=== PATIENT | male | born 1965 | race Caucasian/White ===

== ENCOUNTER 2019-08-24 09:06 | Emergency (ER) | payer BC ==
[2019-08-24 09:49] LABS: Absolute Lymphocytes (CBC) 1.3 K/uL (0.7-4.9); Basophils % 0.9 % (0-1.3); Hematocrit 42.2 % (39.6-49.0); Lymphocytes % 14.9 % (15.3-44.8); MPV 9.1 fL (7.6-11.3); RBC Red Blood Cell Count 4.46 M/uL (4.33-5.43)
[2019-08-24 10:16] LABS: ALT/SGPT 43 U/L (12-78); AST/SGOT 25 U/L (15-37); Alkaline Phosphatase 65 U/L (45-117); BUN Blood Urea Nitrogen 14 mg/dL (7-18); Bicarbonate 30 mmol/L (21-32); Bilirubin Total 0.9 mg/dL (0.2-1.0); Glucose Level 129 mg/dL (74-106); HDL Cholesterol 55 mg/dL (40-60); LDL Cholesterol, Calculated 84 (<130); Potassium 4.1 mmol/L (3.5-5.1); Protein, Total 7.2 g/dL (6.4-8.2); Sodium Level 137 mmol/L (136-145)
--- NOTE | 2019-08-24 10:54 | RAD REPORT ---
EXAM DESCRIPTION: US - Extremity Venous Uni Ltd - 08/24/2019 10:19 am CLINICAL HISTORY: Right leg pain and swelling COMPARISON: None. TECHNIQUE: Real-time sonographic evaluation of the right lower extremity deep venous systems was per formed. FINDINGS: Normal compressibility, flow augmentation, phasic flow and spontaneous flow are identified in the right lower extremity common femoral, superficial femoral, popliteal and posterior tibial vei ns. No intraluminal filling defects seen. Exam was limited due to large body habitus. IMPRESSION: No DVT in the right lower extremity.
[2019-08-24 11:19] LABS: Urine Blood TRACE (NEG); Urine Glucose NEGATIVE (NEG); Urine Protein 1+ (NEG); Urine Specific Gravity 1.025 (1.005-1.030)
--- NOTE | 2019-08-24 11:33 | RAD REPORT ---
EXAM DESCRIPTION: RAD - Foot Right 3 View - 08/24/2019 10:28 am CLINICAL HISTORY: Osteoarthritis, he will wound COMPARISON: None. FINDINGS: No fracture, dislocation or periosteal reaction. No acute or destructive bone process seen . Small plantar spur is present. Minimal spurring seen at the Achilles attachment to the calcaneus. P atient has degenerative change at the tarsal - metatarsal articulations. This is relatively prominent for age. Soft tissue wound seen in the plantar soft tissues. Adjacent calcaneus shows no suspicious finding. No foreign body. IMPRESSION: Soft tissue wound near the calcaneus plantar surface of the foot. No bone destructive process seen. Osteomyelitis can exist prior to radiographic bone destruction.
--- NOTE | 2019-08-24 11:46 | RAD REPORT ---
EXAM DESCRIPTION: US - Lower Extremity Arterial Bilat - 08/24/2019 10:53 am CLINICAL HISTORY: Leg pain, peripheral vascular disease COMPARISON: None. TECHNIQUE: Left brachial artery pressure measurement was obtained. No right extremity arterial press ure obtained due to IV in place. Exam was requested as a limited ADRIANA only examination. FINDINGS: Left brachial artery pressure measurement is in the normal range. ADRIANA values are normal me asuring 1.08 on the right and 1.12 on the left. IMPRESSION: Limited extremity examination showing normal bilateral lower extremity ADRIANA values.
--- NOTE | 2019-08-24 13:07 | ER ---
Nurse's Notes [facility] Name: Chip Segundo III Age: 53 yrs Sex: Male : 1965 Arrival Date: 08/24/2019 Time: 09:10 Bed 8 Private MD: Diagnosis: Venous Stasis;Heel ulcer Presentation: 08/24 09:27 Presenting complaint: Patient states: Right foot sore x 2 weeks and right lower leg jl7 redness and swelling x 3 days. Transition of care: patient was not received from another setting of care. Onset of symptoms was August 21, 2019. Risk Assessment: Do you want to hurt yourself or someone else? Patient reports no desire to harm self or others. Initial Sepsis Screen: Does the patient meet any 2 criteria? No. Patient's initial sepsis screen is negative. Does the patient have a suspected source of infection? Yes: Skin breakdown/wound. Care prior to arrival: None. 09:27 Method Of Arrival: Ambulatory jl7 09:27 Acuity: CLINT 3 jl7 Triage Assessment: 09:29 General: Appears in no apparent distress. uncomfortable, Behavior is calm, cooperative, jl7 appropriate for age. Pain: Denies pain. Neuro: Level of Consciousness is awake, alert, obeys commands, Oriented to person, place, time, situation. Cardiovascular: Patient's skin is warm and dry. Respiratory: Airway is patent Respiratory effort is even, unlabored, Respiratory pattern is regular, symmetrical. Derm: Skin is pink, warm \T\ dry. Wound noted heel of right foot Wound is open, no bleeding. Historical: - Allergies: 09:29 No Known Allergies; jl7 - Home Meds: 09:29 carvedilol 12.5 mg Oral tab [Active]; olmesartan-hydrochlorothiazide 40-25 Oral 1 tab jl7 once daily [Active]; - PMHx: 09:29 Hypertension; jl7 - PSHx: 09:29 Knee surgery; jl7 - Immunization history:: Adult Immunizations not up to date, Last tetanus immunization: < 5 years ago. - Social history:: Smoking status: Patient/guardian denies using tobacco. - Ebola Screening: : No symptoms or risks identified at this time. Screenin:30 Abuse screen: Denies threats or abuse. Denies injuries from another. Nutritional jl7 screening: No deficits noted. Tuberculosis screening: No symptoms or risk factors identified. Fall Risk IV access (20 points). Total Jiang Fall Scale indicates No Risk (0-24 pts). Assessment: 09:30 General: See triage assessment. jl7 10:30 Reassessment: Patient appears in no apparent distress at this time. No changes from 7 previously documented assessment. Patient and/or family updated on plan of care and expected duration. Pain level reassessed. Patient is alert, oriented x 3, equal unlabored respirations, skin warm/dry/pink. 11:30 Reassessment: Patient appears in no apparent distress at this time. No changes from jl7 previously documented assessment. Patient and/or family updated on plan of care and expected duration. Pain level reassessed. Patient is alert, oriented x 3, equal unlabored respirations, skin warm/dry/pink. 12:30 Reassessment: Patient appears in no apparent distress at this time. No changes from jl7 previously documented assessment. Patient and/or family updated on plan of care and expected duration. Pain level reassessed. Patient is alert, oriented x 3, equal unlabored respirations, skin warm/dry/pink. Vital Signs: 09:29 BP 164 / 109; Pulse 95; Resp 19 S; Temp 97.9(O); Pulse Ox 98% on R/A; Weight 158.76 kg jl7 (R); Height 6 ft. 5 in. (195.58 cm) (R); Pain 0/10; 11:08 BP 128 / 83; Pulse 66; Resp 19 S; Pulse Ox 98% on R/A; Pain 0/10; jl7 12:30 BP 132 / 85; Pulse 89; Resp 16 S; Pulse Ox 98% on R/A; jl7 09:29 Body Mass Index 41.50 (158.76 kg, 195.58 cm) jl7 ED Course: 09:10 Patient arrived in ED. rg4 09:12 Jez Douglass MD is Attending Physician. ps1 09:27 Valery Grier RN is Primary Nurse. jl7 09:28 Triage completed. jl7 09:29 Arm band placed on right wrist. jl7 09:30 Patient has correct armband on for positive identification. Bed in low position. Call [facility] light in reach. Side rails up X 1. Pulse ox on. NIBP on. 09:39 Initial lab(s) drawn, by me, sent to lab. Inserted saline lock: 22 gauge in right jb1 antecubital area, using aseptic technique. Blood collected. 10:22 Extremity Venous Uni Ltd In Process Unspecified. EDMS 10:26 Foot Right 3 View XRAY In Process Unspecified. EDMS 10:47 Hemoglobin A1c Sent. jl7 11:08 Hemoglobin A1c Sent. jl7 12:40 ED physician to see patient. jl7 13:16 No provider procedures requiring assistance completed. IV discontinued, intact, jl7 bleeding controlled, No redness/swelling at site. Pressure dressing applied. Administered Medications: No medications were administered Outcome: 13:06 Discharge ordered by MD. ps1 13:16 Discharged to home ambulatory. jl7 13:16 Condition: stable 13:16 Discharge instructions given to patient, Instructed on discharge instructions, follow up and referral plans. medication usage, Demonstrated understanding of instructions, follow-up care, medications, Prescriptions given X 3. 13:17 Patient left the ED. jl7 Signatures: Dispatcher [employer] EDMS Gilmar Day jb1 Analisa Benz rg4 Valery Grier, RN RN jl7 Jez Douglass MD MD ps1 Corrections: (The following items were deleted from the chart) 10:58 10:23 In radiology for Upper Lower Extrem Art Multi. EDMS EDMS
--- NOTE | 2019-08-24 13:07 | EDPHYS ---
Physician Documentation [facility] Name: Chip Segundo III Age: 53 yrs Sex: Male : 1965 Arrival Date: 08/24/2019 Time: 09:10 Bed 8 Private MD: ED Physician Jez Douglass HPI: 08/24 09:31 This 53 yrs old Male presents to ER via Ambulatory with complaints of Leg ps1 Pain. 09:31 Patient has an otherwise unknown medical history other than hypertension. 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 He is presenting with right leg pain and new redness and swelling of the right leg. He additionally has a non-healing wound on the right heel. No known history of DM. Reportedly had a history of cellulitis in the same leg a year ago requiring admission. . Historical: - Allergies: 09:29 No Known Allergies; jl7 - Home Meds: 09:29 carvedilol 12.5 mg Oral tab [Active]; olmesartan-hydrochlorothiazide 40-25 Oral 1 tab jl7 once daily [Active]; - PMHx: 09:29 Hypertension; jl7 - PSHx: 09:29 Knee surgery; jl7 - Immunization history:: Adult Immunizations not up to date, Last tetanus immunization: < 5 years ago. - Social history:: Smoking status: Patient/guardian denies using tobacco. - Ebola Screening: : No symptoms or risks identified at this time. ROS: 09:31 Constitutional: Negative for fever, chills, and weight loss, Eyes: Negative for injury, ps1 pain, redness, and discharge, Cardiovascular: Negative for chest pain, palpitations, and edema, Respiratory: Negative for shortness of breath, cough, wheezing, and pleuritic chest pain, Abdomen/GI: Negative for abdominal pain, nausea, vomiting, diarrhea, and constipation, MS/Extremity: Negative for injury and deformity, Psych: Negative for depression, anxiety, suicide ideation, homicidal ideation, and hallucinations. 09:31 Skin: Positive for discoloration, of the right leg and left leg and right foot. Exam: 09:39 Constitutional: This is a well developed, well nourished patient who is awake, alert, ps1 and in no acute distress. Head/Face: Normocephalic, atraumatic. Eyes: Pupils equal round and reactive to light, extra-ocular motions intact. Lids and lashes normal. Conjunctiva and sclera are non-icteric and not injected. Chest/axilla: Normal chest wall appearance and motion. Nontender with no deformity. No lesions are appreciated. Cardiovascular: Regular rate and rhythm. No gallops, murmurs, or rubs. Normal PMI, no JVD. No pulse deficits. Respiratory: Lungs have equal breath sounds bilaterally, clear to auscultation and percussion. No rales, rhonchi or wheezes noted. No increased work of breathing, no retractions or nasal flaring. Abdomen/GI: Soft, non-tender, with normal bowel sounds. No distension or tympany. No guarding or rebound. No evidence of tenderness throughout. MS/ Extremity: Pulses equal, no cyanosis. Neurovascular intact. Full, normal range of motion. 09:39 Skin: has chronic discoloration and hair loss of both lower extremities consistent with vasculopathy. Has erythematous changes which are new in the right leg with asymmetrical swelling of the right as compared to left. There is a decubitus ulcer 4cm in diameter of the right heel. Odorous. No purulent drainage. . Vital Signs: 09:29 BP 164 / 109; Pulse 95; Resp 19 S; Temp 97.9(O); Pulse Ox 98% on R/A; Weight 158.76 kg jl7 (R); Height 6 ft. 5 in. (195.58 cm) (R); Pain 0/10; 11:08 BP 128 / 83; Pulse 66; Resp 19 S; Pulse Ox 98% on R/A; Pain 0/10; jl7 12:30 BP 132 / 85; Pulse 89; Resp 16 S; Pulse Ox 98% on R/A; jl7 09:29 Body Mass Index 41.50 (158.76 kg, 195.58 cm) jl7 MDM: 09:30 Patient medically screened. ps1 08/24 09:25 Order name: CBC with Diff; Complete Time: 10: ps1 08/24 09:25 Order name: CMP; Complete Time: 10: ps1 08/24 09:25 Order name: Lipid Profile; Complete Time: 10: ps1 08/24 09:25 Order name: ESR; Complete Time: : ps1 08/24 09:25 Order name: Hemoglobin A1c ps1 08/24 10:59 Order name: Hemoglobin A1c; Complete Time: 11:23 EDTN 08/24 09:25 Order name: Foot Right 3 View XRAY; Complete Time: 11:43 ps1 08/24 09:25 Order name: Urine Dipstick-Ancillary (obtain specimen); Complete Time: 11:08 ps1 08/24 09:36 Order name: Extremity Venous Uni Ltd; Complete Time: 10:58 EDTN 08/24 10:59 Order name: Lower Extremity Arterial Bilat; Complete Time: 12:32 EDTN 08/24 11:04 Order name: Urine Dipstick--Ancillary (enter results); Complete Time: 11:23 bd Administered Medications: No medications were administered Disposition: 08/24/19 13:06 Discharged to Home. Impression: Venous Stasis, Heel ulcer. - Condition is Stable. - Discharge Instructions: Venous Ulcer, Venous Stasis or Chronic Venous Insufficiency. - Prescriptions for compression stocking - apply 1 Each by over lower extremities route 1-2 times daily for 12 hours; 2 Each. Keflex 500 mg Oral Capsule - take 1 capsule by ORAL route every 8 hours for 10 days; 30 capsule. Bactrim DS 800- 160 mg Oral Tablet - take 1 tablet by ORAL route every 12 hours for 10 days; 20 tablet. - Medication Reconciliation Form, Thank You Letter, Antibiotic Education, Prescription Opioid Use form. - Follow up: Emergency Department; When: As needed; Reason: Fever > 102 F, Worsening of condition. Follow up: Private Physician; When: Dr. Juárez, Vascular Surgery. ; Reason: Further diagnostic work-up, Recheck today's complaints, Re-evaluation by your physician. - Problem is new. - Symptoms are unchanged. Signatures: Dispatcher [employer] EDTN Valery Grier RN RN jl7 Jez Douglass MD MD ps1 Corrections: (The following items were deleted from the chart) 09:38 09:31 Skin: Positive for chronic hyperpigmentation and changes of vasculopathy in lower ps1 extremities bilaterally. He has hair loss in tibial area. Right leg is asymmetrically enlarged as compared to left. There are erythematous changes that are apparent per patient however states that he has redness of the extremity since last cellulitic episode. 3 cm decubitus ulcer of the right heel with muscle tissue exposed. Has unpleasant smell. No purulent drainage. , ps1 09:39 09:31 Skin: Positive for ps1 ps1 10:22 09:31 Lower Extremity Arterial Bilat ordered. EDMS EDMS 10:58 10:23 Upper Lower Extrem Art Multi ordered. EDMS EDMS 13:17 13:06 08/24/2019 13:06 Discharged to Home. Impression: Venous Stasis; Heel ulcer. jl7 Condition is Stable. Forms are Medication Reconciliation Form, Thank You Letter, Antibiotic Education, Prescription Opioid Use. Follow up: Emergency Department; When: As needed; Reason: Fever > 102 F, Worsening of condition. Follow up: Private Physician; When: Dr. Juárez, Vascular Surgery. ; Reason: Further diagnostic work-up, Recheck today's complaints, Re-evaluation by your physician. Problem is new. Symptoms are unchanged. ps1
[2019-08-24 13:24] VITALS: TEMP 97.9; O2SAT 98
[2019-08-24 13:27] VITALS: BP 132/85
== END 2019-08-24 13:17 | disposition home or self-care (01) ==
LOC: ER 09:06
DX: I87.2 Venous insufficiency (chronic) (peripheral) (principal); I10 Essential (primary) hypertension
CPT/HCPCS: 36415; 80053; 80061; 81003; 83036; 85025; 85652; 93925; 93971; 99284

== ENCOUNTER 2021-11-23 12:10 | Inpatient (IN) | payer BC ==
--- OUTSIDE RECORDS SUMMARY | 2021-11-23 12:22 | XMS REPORT | Continuity of Care Document ---
:1965 Author Organization [facility] t Address [address] [place] [address] Care Team Providers Name Role Phone Mayelin Chen Attending Clinician Unavailable IGNACIA Attending Clinician Unavailable Payers Payer Name Policy Type Policy Number Effective Date Expiration Date S [facility] - [id number] 2004 00:00:00 OUT OF STATE Problems This patient has no known problems. Allergies, Adverse Reactions, Alerts Allergy Allergy Status Severity Reaction(s) Onset Inactive Treating Comm ents Source Name Type Date Date Clinician NO KNOWN Drug Active [facility] Medications This patient has no known medications. Procedures This patient has no known procedures. Encounters Start End Encounter Admission Attending Care Care Encounter Source Date/Time Date/Time Type Type Clinicians Facility Department ID 2021-09-20 Outpatient Sarahi Chen [facility] [id number] 13:50:35 [id number] [facility] 2021-09-20 Outpatient Sarahi Chen [facility] [id number] 13:46:08 [id number] [facility] 2020-03-25 2020-03-25 Outpatient Dorothea [facility] [id number] [id number] [facility] 08:00:00 08:00:00 MACRINA [id number] latha low [facility] 2020-03-25 2020-03-25 Outpatient Dorothea [facility] [id number] [facility] 08:00:00 08:00:00 MACRINA low [facility] 2020-03-11 2020-03-11 [facility] [id number] Univers 08:00:00 08:00:00 MACRINA [id number] low [facility] 2020-03-11 2020-03-11 Outpatient R IGNACIA [facility] [id number] Univers 08:00:00 08:00:00 MACRINA latha cole [facility] 2020-02-26 2020-02-26 Outpatient R IGNACIA [facility] [id number] [id number] Univers 08:00:00 08:00:00 MACRINA [id number] xenalino cole [facility] 2020-02-26 2020-02-26 Outpatient R IGNACIA [facility] [id number] Univers 08:00:00 08:00:00 MACRINA latha cole [facility] 2020-02-05 2020-02-05 Outpatient R IGNACIA [facility] [id number] Univers 09:45:00 09:45:00 MACRINA latha low douglas [facility] 2020-02-05 2020-02-05 Outpatient R IGNACIA [facility] [id number] Univers 09:45:00 09:45:00 MACRINA [id number] xenalino cole [facility] 2019-12-11 2019-12-11 Outpatient R IGNACIA [facility] [id number] [id number] Univers 08:00:00 08:00:00 MACRINA [id number] xenalino cole [facility] 2019-12-11 2019-12-11 Outpatient R IGNACIA [facility] [id number] Univers 08:00:00 08:00:00 MACRINA mccallumlino low douglas [facility] 2019-10-22 2019-10-22 Outpatient R IGNACIA [facility] [id number] Univers 09:00:00 09:00:00 MACRINA mccallumlino low [facility] Results This patient has no known results.
[2021-11-23 13:53] LABS: Absolute Lymphocytes (CBC) 1.2 K/uL (0.7-4.9); Hematocrit 44.6 % (39.6-49.0); Lymphocytes % 12.4 % (15.3-44.8); MPV 7.8 fL (7.6-11.3); RBC Red Blood Cell Count 4.86 M/uL (4.33-5.43)
[2021-11-23 13:55] LABS: Protime INR 1.17
[2021-11-23 14:10] LABS: Albumin 2.7 g/dL (3.4-5.0); Bilirubin Direct 0.2 mg/dL (0-0.2); Bilirubin Total 0.7 mg/dL (0.2-1.0); Magnesium 1.8 mg/dL (1.8-2.4); Potassium 4.1 mmol/L (3.5-5.1); Troponin High Sensitivity 3.3 pg/mL (<58.9)
--- NOTE | 2021-11-23 14:32 | RAD REPORT ---
EXAM DESCRIPTION: US - Extremity Venous Uni Ltd - 11/23/2021 2:27 pm CLINICAL HISTORY: SWELLING COMPARISON: None. TECHNIQUE: Real-time sonographic evaluation of the right lower extremity deep venous systems was per formed. FINDINGS: Normal compressibility, flow augmentation, phasic flow and spontaneous flow are identified in the right lower extremity common femoral, superficial femoral, popliteal and posterior tibial vei ns. No intraluminal filling defects seen. IMPRESSION: No DVT in the right lower extremity.
--- NOTE | 2021-11-23 14:48 | RAD REPORT ---
EXAM DESCRIPTION: RAD - Chest Single View - 11/23/2021 2:37 pm CLINICAL HISTORY: right lower leg swelling COMPARISON: Single-view chest 11/23/2016 TECHNIQUE: AP portable chest image was obtained 11/23/2021 2:37 pm . FINDINGS: Lungs are clear. Interstitial pattern matches comparison. Heart and vasculature are normal . No measurable pleural effusion and no pneumothorax. No acute bony abnormality seen. No acute aortic findings suspected. IMPRESSION: No acute cardiopulmonary process. No significant change from comparison study.
--- NOTE | 2021-11-23 15:12 | ER ---
Nurse's Notes [facility] Name: Chip Segundo III Age: 56 yrs Sex: Male : 1965 Arrival Date: 11/23/2021 Time: 12:18 Bed 15 Private MD: Diagnosis: Cellulitis of right lower limb;Unspecified atrial fibrillation Presentation: 11/23 12:44 Chief complaint: Patient states: he has right lower leg cellulits of which he received ap3 antibiotics for from his PCP last Friday 11/17. However patient states that it has not improved, but has gotten worse. Patients right leg is reddened, warm to the touch, and there is swelling present. Coronavirus screen: At this time, the client does not indicate any symptoms associated with coronavirus-19. Ebola Screen: No symptoms or risks identified at this time. Initial Sepsis Screen: Does the patient meet any 2 criteria? HR > 90 bpm. No. Patient's initial sepsis screen is negative. Does the patient have a suspected source of infection? Yes: Skin breakdown/wound. Risk Assessment: Do you want to hurt yourself or someone else? Patient reports no desire to harm self or others. Onset of symptoms was November 17, 2021. 12:44 Method Of Arrival: Ambulatory ap3 12:44 Acuity: CLINT 3 ap3 Triage Assessment: 12:50 General: Appears in no apparent distress. Behavior is calm, cooperative, appropriate ap3 for age. Pain: Complains of pain in right leg Quality of pain is described as tightness. Neuro: Level of Consciousness is awake, alert, obeys commands, Oriented to person, place, time, situation. Respiratory: Airway is patent Respiratory effort is even, unlabored, Respiratory pattern is regular, symmetrical. Derm: Skin has skin tears on right lower leg Wound noted lateral aspect of right calf, right ankle, right calf, right Achilles, medial aspect of right calf, right amado and anterior aspect of right ankle. Historical: - Home Meds: 12:48 carvedilol 12.5 mg Oral tab [Active]; olmesartan-hydrochlorothiazide 40-25 Oral 1 tab ap3 once daily for Hypertension [Active]; cephalexin 500 mg Oral cap 1 cap twice a day [Active]; sulfamethoxazole-trimethoprim 800-160 mg Oral tab 1 tab twice a day [Active]; 15:28 aspirin 81 mg Oral chew 1 tab once daily [Active]; ab2 - PMHx: 12:48 Hypertension; Cellulitis; ap3 - Immunization history:: Client reports having NOT received the Covid vaccine. Flu vaccine is not up to date. - Social history:: Smoking status: Patient reports use of chewing tobacco. Patient uses alcohol, on a daily basis. Screenin:52 Abuse screen: Denies threats or abuse. Nutritional screening: No deficits noted. ap3 Tuberculosis screening: No symptoms or risk factors identified. 14:19 Fall Risk None identified. ab2 Assessment: 14:13 General: Appears in no apparent distress. comfortable, Behavior is calm, cooperative, ab2 appropriate for age. Pain: Complains of pain in right amado Pain does not radiate. Neuro: Level of Consciousness is awake, alert, obeys commands, Oriented to person, place, time, situation, Appropriate for age Microbiology Laboratory Manager are equal bilaterally Moves all extremities. Cardiovascular: No deficits noted. Denies chest pain, shortness of breath, Heart tones S1 S2 present. Respiratory: No deficits noted. Airway is patent Respiratory effort is even, unlabored, Respiratory pattern is regular, symmetrical, Breath sounds are clear bilaterally. GI: No deficits noted. No signs and/or symptoms were reported involving the gastrointestinal system. Abdomen is round non-distended, Bowel sounds present X 4 quads. : No deficits noted. No signs and/or symptoms were reported regarding the genitourinary system. EENT: No deficits noted. No signs and/or symptoms were reported regarding the EENT system. Derm: Wound noted right amado. 14:53 Reassessment: Patient appears in no apparent distress at this time. Awaiting results of ab2 imaging for disposition. Patient given ice water and pillow for comfort. Denies any further needs at this time, remains at bedside. 17:00 Reassessment: Patient appears in no apparent distress at this time. Pt resting in bed, ab2 denies any needs. Pt given water and pillow for comfort. 18:23 Reassessment: Patient appears in no apparent distress at this time. Pt sitting in ab2 recliner placed at bedside, water given, dinner tray given and urinal placed at bedside. 19:30 General: Appears in no apparent distress. comfortable, Behavior is calm, cooperative, al4 appropriate for age. Pain: Denies pain. Neuro: Level of Consciousness is awake, alert, obeys commands, Oriented to person, place, time, situation. Cardiovascular: Capillary refill < 3 seconds Patient's skin is warm and dry. Edema is 2+ to right midcalf, right ankle, right foot and right toes. Respiratory: Airway is patent Respiratory effort is unlabored, Respiratory pattern is symmetrical. Derm: Wound noted lateral aspect of right calf, right ankle, lateral aspect of right foot, right calf, right Achilles, right heel, medial aspect of right calf and medial aspect of right foot. Musculoskeletal: Circulation, motion, and sensation intact. 20:30 Reassessment: Patient and/or family updated on plan of care and expected duration. Pain al4 level reassessed. Patient is alert, oriented x 3, equal unlabored respirations, skin warm/dry/pink. 21:30 Reassessment: Patient and/or family updated on plan of care and expected duration. Pain al4 level reassessed. Patient is alert, oriented x 3, equal unlabored respirations, skin warm/dry/pink. Vital Signs: 12:44 BP 138 / 95; Pulse 99; Resp 16; Temp 97.5; Pulse Ox 98% ; Weight 167.83 kg; Height 6 ap3 ft. 5 in. (195.58 cm); 14:19 BP 129 / 90; Pulse 99; Resp 18; Pulse Ox 98% on R/A; ab2 14:54 BP 123 / 75; Pulse 86; Resp 17; Pulse Ox 98% on R/A; ab2 15:27 BP 120 / 86; Pulse 94; Resp 16; Pulse Ox 99% on R/A; ab2 16:35 BP 123 / 73; Pulse 103; Resp 17; Pulse Ox 97% on R/A; ab2 17:53 BP 120 / 82; Pulse 112; Resp 17; Pulse Ox 98% on R/A; ab2 18:26 BP 123 / 76; Pulse 102; Resp 17; Temp 98.2(O); Pulse Ox 99% on R/A; Pain 0/10; ab2 19:30 BP 109 / 75; Pulse 91; Resp 18 S; Pulse Ox 98% on R/A; al4 20:30 BP 114 / 67; Pulse 101; Resp 18 S; Pulse Ox 98% on R/A; al4 21:30 BP 130 / 84; Pulse 105; Resp 17 S; Pulse Ox 97% on R/A; al4 12:44 Body Mass Index 43.88 (167.83 kg, 195.58 cm) ap3 ED Course: 12:18 Patient arrived in ED. ds1 12:48 Triage completed. ap3 12:52 Arm band placed on left wrist. ap3 12:56 Naga Morales PA is PHCP. cp 12:56 Roland Mishra MD is Attending Physician. cp 13:15 Robert Calhoun is Primary Nurse. ab2 14:18 Patient has correct armband on for positive identification. Bed in low position. Call ab2 light in reach. Side rails up X2. 14:18 No provider procedures requiring assistance completed. ab2 14:19 Inserted saline lock: 20 gauge in right antecubital area, using aseptic technique. ab2 Blood collected. 14:20 Procalcitonin Sent. ab2 14:20 Blood Culture Adult (2) Sent. ab2 14:20 Lactate Sent. ab2 14:21 US Extremity Venous Unilateral Ltd In Process Unspecified. EDMS 14:21 US LE Artery Uni Ltd In Process Unspecified. EDMS 14:38 XRAY Chest (1 view) In Process Unspecified. EDMS 15:12 Guille Mishra MD is Hospitalizing Provider. cp 15:27 COVID-19/FLU A+B (Document "Date of Onset" if Symptomatic) Sent. ab2 22:44 Patient admitted, IV remains in place. al4 Administered Medications: 15:17 Drug: Cefepime 2 grams Route: IVPB; Rate: 200 ml/hr; Infused Over: 30 mins; Site: right ab2 forearm; 18:27 Follow up: Response: No adverse reaction; IV Status: Completed infusion ab2 16:33 Drug: vancoMYCIN 1.5 grams Route: IVPB; Rate: calculated rate; Site: right antecubital; ab2 18:28 Follow up: Response: No adverse reaction; IV Status: Completed infusion ab2 16:33 Drug: Lovenox (enoxaparin) 1 mg/kg Route: Sub-Q; Site: left upper arm; ab2 18:28 Follow up: Response: No adverse reaction ab2 Outcome: 15:12 Decision to Hospitalize by Provider. cp 22:21 Admitted to Med/surg room 209, Report called to PRAVEENA Holman al4 22:21 Condition: stable 22:21 Instructed on the need for admit, Demonstrated understanding of instructions. 22:40 Patient left the ED. al4 Signatures: Dispatcher [employer] SANIANE Garcia, Florence ds1 Naga Morales PA PA cp Prokisch, Amanda, RN RN ap3 Robert Escalera al4 Robert Calhoun
--- NOTE | 2021-11-23 15:12 | EDPHYS ---
Physician Documentation [facility] Name: Chip Segundo III Age: 56 yrs Sex: Male : 1965 Arrival Date: 11/23/2021 Time: 12:18 Bed 15 Private MD: ED Physician Roland iMshra HPI: 11/23 13:20 This 56 yrs old Male presents to ER via Ambulatory with complaints of Leg Cellulitis. cp 13:20 The patient presents with swelling, tenderness. The complaints affect the right lower cp leg and right foot. 13:20 Context: resulted from an unknown cause, the patient can fully bear weight, the patient cp is able to ambulate, with mild difficulty, Problem is a result from a previous injury: No. 13:20 Onset: The symptoms/episode began/occurred last week. Associated signs and symptoms: cp Pertinent positives: calf tenderness, warmth, Pertinent negatives fever, numbness. 13:20 Treatment prior to arrival includes: currently taking prescribed Bactrim and Cephalexin cp since last Saturday. Historical: - Home Meds: 12:48 carvedilol 12.5 mg Oral tab [Active]; olmesartan-hydrochlorothiazide 40-25 Oral 1 tab ap3 once daily for Hypertension [Active]; cephalexin 500 mg Oral cap 1 cap twice a day [Active]; sulfamethoxazole-trimethoprim 800-160 mg Oral tab 1 tab twice a day [Active]; 15:28 aspirin 81 mg Oral chew 1 tab once daily [Active]; ab2 - PMHx: 12:48 Hypertension; Cellulitis; ap3 - Immunization history:: Client reports having NOT received the Covid vaccine. Flu vaccine is not up to date. - Social history:: Smoking status: Patient reports use of chewing tobacco. Patient uses alcohol, on a daily basis. ROS: 13:25 Constitutional: Negative for body aches, chills, fever, poor PO intake. cp 13:25 Eyes: Negative for injury, pain, redness, and discharge. cp 13:25 Cardiovascular: Negative for chest pain, palpitations. 13:25 Respiratory: Negative for cough, shortness of breath, wheezing. 13:25 Abdomen/GI: Negative for abdominal pain, nausea, vomiting, and diarrhea. 13:25 MS/extremity: Positive for erythema, swelling, tenderness, of the right lower leg and right foot, Negative for injury or acute deformity, decreased range of motion. 13:25 Neuro: Negative for altered mental status, dizziness, weakness. 13:25 All other systems are negative. Exam: 13:30 Constitutional: The patient appears in no acute distress, alert, awake, cp non-diaphoretic, non-toxic, well developed, well nourished, obese. 13:30 Head/Face: Normocephalic, atraumatic. cp 13:30 Eyes: Periorbital structures: appear normal, Conjunctiva: normal, no exudate, no injection, Sclera: no appreciated abnormality, Lids and lashes: appear normal, bilaterally. 13:30 ENT: External ear(s): are unremarkable, Nose: is normal, Mouth: Lips: moist, Oral mucosa: moist, Posterior pharynx: Airway: no evidence of obstruction, patent. 13:30 Neck: ROM/movement: is normal, is supple, without pain, no range of motions limitations. 13:30 Chest/axilla: Inspection: normal. 13:30 Cardiovascular: Rate: normal, Rhythm: regular. 13:30 Respiratory: the patient does not display signs of respiratory distress, Respirations: normal, no use of accessory muscles, no retractions, labored breathing, is not present, Breath sounds: are clear throughout, no decreased breath sounds, no stridor, no wheezing. 13:30 Abdomen/GI: Exam negative for discomfort, distension, guarding, Inspection: abdomen appears normal. 13:30 Skin: abscess, not appreciated, cellulitis, that is moderate, well demarcated, on the right lower leg and right foot. 13:30 Neuro: Orientation: to person, place \\T\\ time. Mentation: is normal. 13:50 ECG was reviewed by the Attending Physician. cp Vital Signs: 12:44 BP 138 / 95; Pulse 99; Resp 16; Temp 97.5; Pulse Ox 98% ; Weight 167.83 kg; Height 6 ap3 ft. 5 in. (195.58 cm); 14:19 BP 129 / 90; Pulse 99; Resp 18; Pulse Ox 98% on R/A; ab2 14:54 BP 123 / 75; Pulse 86; Resp 17; Pulse Ox 98% on R/A; ab2 15:27 BP 120 / 86; Pulse 94; Resp 16; Pulse Ox 99% on R/A; ab2 16:35 BP 123 / 73; Pulse 103; Resp 17; Pulse Ox 97% on R/A; ab2 17:53 BP 120 / 82; Pulse 112; Resp 17; Pulse Ox 98% on R/A; ab2 18:26 BP 123 / 76; Pulse 102; Resp 17; Temp 98.2(O); Pulse Ox 99% on R/A; Pain 0/10; ab2 19:30 BP 109 / 75; Pulse 91; Resp 18 S; Pulse Ox 98% on R/A; al4 20:30 BP 114 / 67; Pulse 101; Resp 18 S; Pulse Ox 98% on R/A; al4 21:30 BP 130 / 84; Pulse 105; Resp 17 S; Pulse Ox 97% on R/A; al4 12:44 Body Mass Index 43.88 (167.83 kg, 195.58 cm) ap3 MDM: 12:57 Patient medically screened. cp 13:30 Differential diagnosis: cellulitis, abscess, sepsis, DVT. cp 15:15 Data reviewed: vital signs, nurses notes, lab test result(s), EKG, radiologic studies, cp ultrasound. 15:15 Test interpretation: by ED physician or midlevel provider: ECG, plain radiologic cp studies. Counseling: I had a detailed discussion with the patient and/or guardian regarding: the historical points, exam findings, and any diagnostic results supporting the discharge/admit diagnosis, lab results, radiology results, the need for further work-up and treatment in the hospital. Response to treatment: the patient's symptoms have mildly improved after treatment. Physician consultation: Guille Mishra MD was called at 15:10, was contacted at 15:10, regarding admission, to the telemetry unit. patient's condition. 11/23 13:10 Order name: Basic Metabolic Panel; Complete Time: 14:34 cp 11/23 14:34 Interpretation: Normal except: NA 133; GFR 89. cp 11/23 13:10 Order name: CBC with Diff; Complete Time: 14:34 cp 11/23 14:34 Interpretation: Normal except: IESHA% 77.7; LYM% 12.4. cp 11/23 13:10 Order name: LFT's; Complete Time: 14:34 cp 11/23 14:35 Interpretation: Normal except: ALB 2.7; GLOB 5.3; A/G 0.5. cp 11/23 13:10 Order name: Magnesium; Complete Time: 14:34 cp 11/23 13:10 Order name: NT PRO-BNP; Complete Time: 14:34 cp 11/23 14:45 Interpretation: NT PRO-BNP 323; Reviewed. cp 11/23 13:10 Order name: PT-INR; Complete Time: 14:34 cp 11/23 13:10 Order name: Troponin HS; Complete Time: 14:34 cp 11/23 14:45 Interpretation: Reviewed. cp 11/23 13:10 Order name: Lactate; Complete Time: 14:34 cp 11/23 13:10 Order name: Blood Culture Adult (2) cp 11/23 13:10 Order name: Procalcitonin; Complete Time: 14:46 cp 11/23 14:46 Interpretation: Procalcitonin 0.08; Reviewed. 11/23 15:08 Order name: COVID-19/FLU A+B (Document "Date of Onset" if Symptomatic) 11/23 16:26 Order name: CBC with Automated Diff [facility] 11/23 16:26 Order name: CBC with Automated Diff [facility] 11/23 16:26 Order name: Comprehensive Metabolic Panel [facility] 11/23 13:10 Order name: XRAY Chest (1 view); Complete Time: 14:58 11/23 13:10 Order name: EKG; Complete Time: 13:10 11/23 13:10 Order name: Cardiac monitoring; Complete Time: 14:20 11/23 13:10 Order name: EKG - Nurse/Tech; Complete Time: 14:20 11/23 13:10 Order name: IV Saline Lock; Complete Time: 14:20 cp 11/23 13:10 Order name: US Extremity Venous Unilateral Ltd; Complete Time: 14:34 cp 11/23 13:10 Order name: US LE Artery Uni Ltd; Complete Time: 15:31 cp 11/23 15:15 Order name: Diet Regular; Complete Time: 15:15 cp 11/23 16:20 Order name: CONS Physician Consult [facility] 11/23 16:26 Order name: Comprehensive Metabolic Panel [facility] 11/23 16:26 Order name: Magnesium EDMS 11/23 16:26 Order name: Magnesium [facility] 11/23 16:37 Order name: Echo with Doppler [facility] 11/23 13:10 Order name: Labs collected and sent; Complete Time: 14:20 cp 11/23 13:10 Order name: O2 Per Protocol; Complete Time: 14:20 cp 11/23 13:10 Order name: O2 Sat Monitoring; Complete Time: 14:20 cp EC:50 Rate is 101 beats/min. Rhythm is irregular. QRS interval is normal. QT interval is cp normal. T waves are Inverted in lead aVR. Interpreted by me. Reviewed by me. Administered Medications: 15:17 Drug: Cefepime 2 grams Route: IVPB; Rate: 200 ml/hr; Infused Over: 30 mins; Site: right ab2 forearm; 18:27 Follow up: Response: No adverse reaction; IV Status: Completed infusion ab2 16:33 Drug: vancoMYCIN 1.5 grams Route: IVPB; Rate: calculated rate; Site: right antecubital; ab2 18:28 Follow up: Response: No adverse reaction; IV Status: Completed infusion ab2 16:33 Drug: Lovenox (enoxaparin) 1 mg/kg Route: Sub-Q; Site: left upper arm; ab2 18:28 Follow up: Response: No adverse reaction ab2 Disposition: 11/24 18:22 Co-signature as Attending Physician, Roland Mishra MD. rn Disposition Summary: 11/23/21 15:12 Hospitalization Ordered Hospitalization Status: Inpatient Admission cp Provider: Guille Mishra cp Location: Telemetry/MedSurg (Inpatient) cp Condition: Stable cp Problem: an ongoing problem cp Symptoms: are unchanged cp Bed/Room Type: Standard Room Assignment: 209(11/23/21 21:50) tw5 Diagnosis - Cellulitis of right lower limb cp - Unspecified atrial fibrillation cp Forms: - Medication Reconciliation Form cp - SBAR form cp Signatures: Dispatcher [employer] EDRoland Banerjee MD MD rn Page, Corey, PA PA cp Raiza Cohen RN RN [email or web address] Padmini Narayan tw5 Robert Calhoun ab2 Corrections: (The following items were deleted from the chart) 11/23 21:50 15:12 cp tw5
[2021-11-23] MEDS ORDERED: CEFEPIME 2 GM VIAL ONE ×2 (15:16→20:54)
[2021-11-23] MEDS ORDERED: NA CHLORIDE 0.9% 100 ML IV ONE ×2 (15:17→20:54)
--- NOTE | 2021-11-23 15:28 | RAD REPORT ---
EXAM DESCRIPTION: US - Lower Extremity Artery Uni Ltd - 11/23/2021 2:27 pm CLINICAL HISTORY: SWELLING COMPARISON: Lower Extremity Arterial Bilat dated 08/24/2019No comparisons TECHNIQUE: Doppler evaluation of the right leg arterial tree performed. Waveforms and velocity value s were obtained along with visual inspection. FINDINGS: Triphasic waveform pattern is identifiable in the common femoral, superficial and poplitea l arteries.Mid thigh to knee vasculature shows a transition towards biphasic waveform pattern. Biphas ic to monophasic waveforms are seen in the dorsalis pedis and posterior tibial arteries. Common femor al artery velocity was 123 cm/second without the usual tapering at the ankle. No occlusion or focal f low restricting lesion identifiable. Atherosclerotic changes are identifiable in the ross of vascula ture. Soft tissues are edematous. No abscess or drainable fluid collection was seen in the soft tissues. IMPRESSION: No occlusion or focal flow restricting lesion was identifiable in the right lower extrem ity. Velocity values are elevated over what is typically seen which is nonspecific. There is progressive t ransformation from triphasic to monophasic waveforms between the groin and ankle.
[2021-11-23] MEDS ORDERED: ENOXAPARIN 80 MG/0.8 ML SQ ONE (15:58)
[2021-11-23] MEDS ORDERED: VANCOMYCIN 1.5 GM in NA CHLORIDE 0.9% 500 ML IVPB ONE (16:00)
[2021-11-23] MEDS ORDERED: ONDANSETRON 4 MG/2 ML VIAL IV PRN (16:20)
[2021-11-23] MEDS ORDERED: ACETAMINOPHEN 500 MG TAB PO PRN (16:20)
--- NOTE | 2021-11-23 16:26 | P.HP ---
Certification for Inpatient Patient admitted to: Inpatient With expected LOS: >2 Midnights Practitioner: I am a practitioner with admitting privileges, knowledge of patient current condition, hospital course, and medical plan of care. Services: Services provided to patient in accordance with Admission requirements found in Title 42 Section 412.3 of the Code of Federal Regulations Patient History Date of Service: 11/23/21 Reason for admission: RLE cellulitis, failed outpatient therapy History of Present Illness: 56 yo M, PMH: Hypertension, prior leg cellulitis x3. Presents to ED due to significant erythema and swelling of his right lower extremity. First noticed swelling and redness 1 week ago. Treated with Keflex and Bactrim over the last 5 days. Patient states swelling and pain slightly improved, but continued to be very red, blistered up and was draining some yellowish fluid. He reports subjective fevers at home, general feelings of malaise and not well. In the ED, he was noted be afebrile, with no leukocytosis. Venous and arterial ultrasounds were negative for DVT or flow restriction. Patient received IV cefepime and vancomycin. He was noted to be in new onset atrial fibrillation, mostly rate controlled [id number]. Patient takes Coreg at home for his blood pressure. He was given Lovenox 1 mg/kg in the ED. Allergies No Known Allergies Allergy (Verified 11/23/16 16:17) Home Medications: Aspirin [Adult Low Dose Aspirin EC] 81 mg PO DAILY 11/23/16 Olmesartan/Hydrochlorothiazide [Benicar Hct 20-12.5 mg Tablet] 1 each PO DAILY 11/23/16 carvediloL [Carvedilol] 12.5 mg PO BID 11/23/16 Doxycycline Monohydrate 100 mg PO BID #28 capsule 11/26/16 Furosemide [Lasix] 20 mg PO DAILY #10 tablet 11/26/16 Smz./Tmp. [Bactrim Ds 800 MG/160 MG*] 1 tab PO BID #28 tab 11/26/16 - Past Medical/Surgical History Diabetic: No -: HTN -: Knee surgery - Family History Mother -: Heart disease, Hypertension Father -: Hypertension, Lung disease - Social History Smoking Status: Former smoker Alcohol use: Yes CD- Drugs: No Caffeine use: Yes Place of Residence: Home Review of Systems 10-point ROS is otherwise unremarkable Physical Examination - Physical Exam General: Alert, In no apparent distress, Oriented x3 HEENT: Mucous membr. moist/pink, Sclerae nonicteric Respiratory: Clear to auscultation bilaterally, Normal air movement Cardiovascular: No murmurs, Edema (2+ RLE), Irregular heart rate/rhythm Gastrointestinal: Soft and benign, Non-distended, No tenderness Musculoskeletal: No contractures Integumentary: Other (erythema, tenderness, superficial skin breakdown on RLE) Neurological: Normal speech, Normal affect - Studies Laboratory Data (last 24 hrs) 11/23/21 13:21: PT 12.9 H, INR 1.17 11/23/21 13:21: WBC 9.5, Hgb 15.4, Hct 44.6, Plt Count 298 11/23/21 13:21: Sodium 133 L, Potassium 4.1, BUN 15, Creatinine 0.88, Glucose 91, Magnesium 1.8, Total Bilirubin 0.7, AST 28, ALT 44, Alkaline Phosphatase 76 Assessment and Plan - Advance Directives Does patient have a Living Will: No Does patient have a Durable POA for Healthcare: No Physician Review Additional Text: Problem List RLE cellulitis, failed outpatient therapy afib, new onset HTN Admit patient for IV antibiotics, failed outpatient therapy with Keflex and Bactrim for 5 days Significant swelling and erythema No obvious abscess formation/fluctuance Continue IV cefepime and vancomycin for empiric coverage Elevate leg ID consulted New onset atrial fibrillation, [id number]: 1, for hypertension s/p 1mg/kg lovenox in ED, continue with dvt prophylaxis dosage for now, will discuss further with cardiology Cardiology consulted VTE lovenox Code: full Dispo: home, ~2-3 days Time Spent Managing Pts Care (In Minutes): 60
[2021-11-23 17:11] LABS: SARS-COV-2 RT PCR NEGATIVE (NEGATIVE)
[2021-11-23] MEDS: METOPROLOL TAR 25 MG TAB PO SCH (18:00)
[2021-11-23] MEDS ORDERED: METOPROLOL TAR 25 MG TAB ONE (20:54)
[2021-11-23] MEDS: CEFEPIME 2 GM in NA CHLORIDE 0.9% 100 ML IV SCH (21:00)
[2021-11-23 22:10] VITALS: BMI 43.9
[2021-11-24] MEDS ORDERED: VANCOMYCIN 2 GM in NA CHLORIDE 0.9% 500 ML IVPB SCH (04:00)
[2021-11-24] MEDS: METOPROLOL TAR 25 MG TAB PO SCH ×2 (05:41→18:03)
[2021-11-24 06:16] LABS: Absolute Lymphocytes (CBC) 1.4 K/uL (0.7-4.9); Lymphocytes % 15.6 % (15.3-44.8); MPV 7.8 fL (7.6-11.3); RBC Red Blood Cell Count 4.36 M/uL (4.33-5.43)
[2021-11-24 06:31] LABS: ALT/SGPT 41 U/L (12-78); AST/SGOT 18 U/L (15-37); Albumin 2.3 g/dL (3.4-5.0); Alkaline Phosphatase 64 U/L (45-117); BUN Blood Urea Nitrogen 15 mg/dL (7-18); Bicarbonate 27 mmol/L (21-32); Bilirubin Total 0.6 mg/dL (0.2-1.0); Glucose Level 107 mg/dL (74-106); Magnesium 1.9 mg/dL (1.8-2.4); Protein, Total 7.6 g/dL (6.4-8.2); Sodium Level 135 mmol/L (136-145)
--- NOTE | 2021-11-24 06:43 | P.PN ---
Date of Service: 11/24/21 Subjective: swelling slightly improved, redness slightly expanded otherwise doing ok, no fever/chills ROS: 10 point ROS as noted above, otherwise negative Physical exam GEN: Alert, oriented, NAD HEENT: Normal conjunctiva, sclera anicteric CV: Regular rate and rhythm, no murmur Pulm: Non-labored respirations on room air ABD: Soft, nontender, nondistended Integumentary: RLE: erythema from midfoot to knee, warm, medial aspect with blistering that ruptured Neuro: Normal speech, normal affect Problem List RLE cellulitis, failed outpatient therapy afib, new onset HTN failed outpatient therapy with Keflex and Bactrim for 5 days Significant swelling and erythema No obvious abscess formation/fluctuance on exam Continue IV cefepime and vancomycin for empiric coverage Elevate leg ID consulted New onset atrial fibrillation, [id number]: 1, for hypertension rate controlled, home coreg changed to metoprolol s/p 1mg/kg lovenox in ED, continue with dvt prophylaxis dosage for now Cardiology consulted VTE: lovenox Code: full Dispo: home, ~2-3 days Time Spent Managing Pts Care (In Minutes): 35
[2021-11-24] MEDS ORDERED: INFLUENZA VACCINE (for 6+ mo) 0.5 ML DOSE IMVAC ONE (08:00)
[2021-11-24] MEDS: CEFEPIME 2 GM in NA CHLORIDE 0.9% 100 ML IV SCH ×2 (08:56→22:12)
[2021-11-24] MEDS: ENOXAPARIN 40 MG/0.4 ML SQ SCH (08:56)
[2021-11-24] MEDS: TRAMADOL HCL 50 MG TAB PO PRN ×2 (08:57→22:12)
--- NOTE | 2021-11-24 13:38 | P.CNS ---
Date of Consult: 11/24/21 Chief Complaint: RLE cellulitis, failed outpatient therapy History of Present Illness: The patient is a 56-year-old male with past medical history of hypertension presented to the emergency department secondary to right lower extremity erythema, swelling, and pain. Patient states that he first noticed his symptoms approximately 1 week ago and was prescribed Keflex and Bactrim x5 days by his primary care physician. He states he noticed slight improvement however on Saturday he had to drive for long hours for work and when he came home he noticed that the symptoms had flared up again. He states the legs blistered up and were draining yellow fluid. He also reports subjective fevers at home. In the ED patient was afebrile with no leukocytosis. Venous Doppler negative for DVT, arterial ultrasounds negative for flow restriction. Patient states that this is his fourth time getting right lower extremity cellulitis, second time requiring hospitalization. 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 States that he sees a coffee host outpatient and they have been utilizing collagen/DuoDERM to treat the wound. States coffee host has gotten x-rays which showed no acute abnormalities. Currently denies nausea/vomiting/diarrhea/shortness or/chest pain. Reports tenderness to right lower extremity. Allergies No Known Allergies Allergy (Verified 11/23/16 16:17) Home Medications: Aspirin [Adult Low Dose Aspirin EC] 81 mg PO DAILY 11/23/16 Olmesartan/Hydrochlorothiazide [Benicar Hct 20-12.5 mg Tablet] 1 each PO DAILY 11/23/16 carvediloL [Carvedilol] 12.5 mg PO BID 11/23/16 Smz./Tmp. [Bactrim Ds 800 MG/160 MG*] 1 tab PO BID #28 tab 11/26/16 - Past Medical/Surgical History Diabetic: No -: HTN -: A fib -: Knee surgery L - Family History Mother Medical History: Heart disease, Hypertension Father Medical History: Hypertension, Lung disease - Social History Alcohol use: Yes CD- Drugs: No Caffeine use: Yes Place of Residence: Home Review of Systems 10-point ROS is otherwise unremarkable Physical Examination Temp Pulse Resp BP Pulse Ox 96.9 F 84 18 131/69 99 11/24/21 08:00 11/24/21 08:00 11/24/21 08:57 11/24/21 08:00 11/24/21 08:57 General: Alert, In no apparent distress, Obese HEENT: Atraumatic, Normocephalic Neck: JVD not distended Respiratory: Clear to auscultation bilaterally, Normal air movement Capillary refill: <2 Seconds Gastrointestinal: Normal bowel sounds, Soft and benign Musculoskeletal: No clubbing Integumentary: Other (Right lower extremity swelling 2+, erythema. Dry scaling skin with blistering some spontaneously ruptured noted.) Laboratory Data (last 24 hrs) 11/23/21 13:21: PT 12.9 H, INR 1.17 11/23/21 13:21: WBC 9.5, Hgb 15.4, Hct 44.6, Plt Count 298 11/23/21 13:21: Sodium 133 L, Potassium 4.1, BUN 15, Creatinine 0.88, Glucose 91, Magnesium 1.8, Total Bilirubin 0.7, AST 28, ALT 44, Alkaline Phosphatase 76 Conclusions/Impression: Antibiotics: Vancomycin: 11/23current Cefepime: 11/23current Right lower extremity cellulitis Filled out my patient treatment with Bactrim and Keflex x5 days Recommend continuing with IV vancomycin and cefepime at this time Venous and arterial Dopplers with no acute abnormalities Wound care to area: Clean with saline, apply Silvadene, and lightly wrapped. Continue to keep leg elevated at or above heart level Hypertension Continue current medications Plan of care discussed with Dr. Heard Thank for consultation
[2021-11-24] MEDS ORDERED: SILVER SULFADIAZINE 1% 25 GM TOP ONE (14:00)
[2021-11-24] MEDS: VANCOMYCIN 2 GM in NA CHLORIDE 0.9% 500 ML IVPB SCH (15:37)
[2021-11-25 03:31] LABS: Hematocrit 41.4 % (39.6-49.0); MPV 7.3 fL (7.6-11.3); RBC Red Blood Cell Count 4.41 M/uL (4.33-5.43)
[2021-11-25 03:47] LABS: BUN Blood Urea Nitrogen 13 mg/dL (7-18); Bicarbonate 28 mmol/L (21-32); Glucose Level 107 mg/dL (74-106); Potassium 4.2 mmol/L (3.5-5.1); Sodium Level 136 mmol/L (136-145)
[2021-11-25] MEDS: METOPROLOL TAR 25 MG TAB PO SCH (05:48)
[2021-11-25] MEDS: VANCOMYCIN 2 GM in NA CHLORIDE 0.9% 500 ML IVPB SCH ×3 (05:48→20:26)
--- NOTE | 2021-11-25 06:05 | P.PN ---
Date of Service: 11/25/21 Subjective: Improving, so significant erythema Less tender, less swollen ROS: 10 point ROS as noted above, otherwise negative Physical exam GEN: Alert, oriented, NAD CV: irregularly irregular rhythm, rate controlled Pulm: Non-labored respirations on room air ABD: Soft, nontender, nondistended Integumentary: RLE: erythema from midfoot to knee, warm, medial aspect with blistering that ruptured Neuro: Normal speech, normal affect Problem List RLE cellulitis, failed outpatient therapy afib, new onset HTN failed outpatient therapy with Keflex and Bactrim for 5 days Significant swelling and erythema. No obvious abscess formation/fluctuance on exam ID consulted Continue IV cefepime and vancomycin for empiric coverage; cultures pending, prelim blood: no growth Elevate leg New onset atrial fibrillation, [id number]: 1, for hypertension rate controlled, home coreg changed to metoprolol s/p 1mg/kg lovenox in ED, continue with dvt prophylaxis dosage for now Cardiology consulted VTE: lovenox Code: full Dispo: home, ~1-2 days Time Spent Managing Pts Care (In Minutes): 35
[2021-11-25] MEDS: CEFEPIME 2 GM in NA CHLORIDE 0.9% 100 ML IV SCH ×2 (08:49→21:54)
[2021-11-25] MEDS: ENOXAPARIN 40 MG/0.4 ML SQ SCH (08:50)
[2021-11-25] MEDS: TRAMADOL HCL 50 MG TAB PO PRN (15:21)
[2021-11-25] MEDS: SOTALOL HCL 80 MG TAB PO SCH (17:39)
[2021-11-25] MEDS ORDERED: carvediloL 12.5 MG TAB PO SCH (21:00)
[2021-11-25] MEDS ORDERED: NA CHLORIDE 0.9% 100 ML ONE (21:51)
[2021-11-26] MEDS: TRAMADOL HCL 50 MG TAB PO PRN ×2 (02:00→11:16)
[2021-11-26 03:49] LABS: BUN Blood Urea Nitrogen 11 mg/dL (7-18); Bicarbonate 29 mmol/L (21-32); Glucose Level 106 mg/dL (74-106); Sodium Level 134 mmol/L (136-145)
[2021-11-26] MEDS ORDERED: NA CHLORIDE 0.9% 0 ML ONE (04:52)
[2021-11-26] MEDS: VANCOMYCIN 2 GM in NA CHLORIDE 0.9% 500 ML IVPB SCH (04:59)
[2021-11-26] MEDS: SOTALOL HCL 80 MG TAB PO SCH ×2 (05:15→17:54)
--- NOTE | 2021-11-26 06:53 | P.PN ---
Date of Service: 11/26/21 Subjective: ROS: 10 point ROS as noted above, otherwise negative Physical exam GEN: Alert, oriented, NAD CV: irregularly irregular rhythm, rate controlled Pulm: Non-labored respirations on room air ABD: Soft, nontender, nondistended Integumentary: RLE: erythema from midfoot to knee, warm, medial aspect with blistering that ruptured Neuro: Normal speech, normal affect Problem List RLE cellulitis, failed outpatient therapy afib, new onset HTN failed outpatient therapy with Keflex and Bactrim for 5 days Significant swelling and erythema. No obvious abscess formation/fluctuance on exam ID consulted Continue IV cefepime and vancomycin for empiric coverage; cultures pending, prelim blood: no growth Elevate leg New onset atrial fibrillation, [id number]: 1, for hypertension rate controlled, home coreg changed to metoprolol s/p 1mg/kg lovenox in ED, continue with dvt prophylaxis dosage for now Cardiology consulted VTE: lovenox Code: full Dispo: home, ~1-2 days Time Spent Managing Pts Care (In Minutes): 35
[2021-11-26] MEDS: CEFEPIME 2 GM in NA CHLORIDE 0.9% 100 ML IV SCH ×2 (08:34→20:22)
[2021-11-26] MEDS: ENOXAPARIN 40 MG/0.4 ML SQ SCH (08:35)
--- NOTE | 2021-11-26 09:58 | P.PN ---
Subjective Date of Service: 11/26/21 Chief Complaint: RLE cellulitis, failed outpatient therapy Subjective: Improving (Patient is doing much better pain has reduced he still in A. fib) Review of Systems 10-point ROS is otherwise unremarkable Physical Examination - Vital Signs Temperature: 97.5 F Blood Pressure: 122/73 Pulse: 8 Respirations: 16 Pulse Ox (%): 99 - Physical Exam General: Alert, In no apparent distress, Oriented x3 Respiratory: Clear to auscultation bilaterally Cardiovascular: Normal S1 S2, Edema (Still has right lower extremity cellulitis) Assessment And Plan - Current Problems (Diagnosis) (1) Cellulitis of right lower extremity Onset Date: 11/26/16 Current Visit: No Status: Acute (2) Atrial fibrillation Current Visit: Yes Status: Acute Qualifiers: Atrial fibrillation type: unspecified Qualified Code(s): I48.91 - Unspecified atrial fibrillation - Plan Continue with IV antibiotics for now atrial fibrillation is controlled change him over to p.o. Xarelto labs reviewed white count is normal blood cultures are so far negative stable discharge tomorrow in consultation with ID and cardiology vital signs stable rate controlled
[2021-11-26] MEDS ORDERED: RIVAROXABAN 15 MG TABLET PO SCH (10:30)
[2021-11-26] MEDS: VANCOMYCIN 2.25 GM in NA CHLORIDE 0.9% 500 ML IVPB SCH ×2 (11:50→20:57)
[2021-11-26] MEDS: RIVAROXABAN 15 MG TABLET PO SCH (16:34)
[2021-11-26] MEDS: IBUPROFEN 400 MG TAB PO PRN (17:53)
--- NOTE | 2021-11-26 18:39 | PN ---
Date of Progress Note: 11/26/2021 Subjective: Seen by bedside, doing well. Still in atrial fibrillation. Review of Systems: No chest pain, shortness of breath, orthopnea, or cough. No nausea, vomiting, diarrhea. All other s ystems reviewed and are negative. Physical Examination: Vital Signs: His temperature is 97.5, heart rate is 91, breathing 18, blood pressure is 122/75, satu rating 97. General: Pleasant middle-aged male, morbidly obese, no apparent distress. Head and Neck: Pupils are equal, reactive to light. Intact eye movements. No JVD. No cervical lym phadenopathy. Neck is supple. Thyroid is not enlarged. Lungs: Clear to auscultation bilaterally. No rhonchi, rales, or crackles. No accessory muscle use. Heart: Irregularly regular. No extra sounds. Abdomen: Soft, nontender. Bowel sounds positive. No organomegaly. No masses or hernia. No rigidi ty or rebound. Extremities: No edema, clubbing, or cyanosis. He has cellulitis of the right lower extremity that a ppears to be better. Lymph Nodes: No cervical or axillary lymphadenopathy Investigations: Labs were reviewed. Assessment And Recommendations: Atrial fibrillation. Still in atrial fibrillation. Please increase the sotalol to 120 mg twice a day and continue Xarelto and we will plan for outpatient workup with a n echo and possible stress test; however, new further cardiac workup as an inpatient is recommended at this point. /MODL Voice ID: [id number] Report ID: [id number]
--- NOTE | 2021-11-26 19:15 | CON ---
Date of Consultation: 11/24/2021 Reason For Consultation: Atrial fibrillation. History Of Present Illness: This is a 56-year-old male with history of hypertension, obesity, presen shruti with swelling, pain and redness of right lower extremity, diagnosed with cellulitis, found to hav e atrial fibrillation, rate in the 90s to 110. Denies having any chest pain or shortness of breath. No nausea, vomiting, or diarrhea. No other complaints. Past Medical History: Hypertension. Medications: Refer to reconciliation sheet for detailed list. Allergies: NO KNOWN DRUG ALLERGIES. Family History: No premature coronary artery disease or cancer. Social History: Does not smoke, but drinks about 10 beers a day. Does not use any drugs. Review of Systems: All systems reviewed and they were negative except for what mentioned in HPI. Physical Examination: Vital Signs: Reviewed. Head and Neck: Pupils are equal, reactive to light. Intact eye movements. No JVD. No cervical lym phadenopathy. Neck is supple. Thyroid is not enlarged. Lungs: Clear to auscultation bilaterally. No rhonchi, rales, or crackles. No accessory muscle use. Heart: Regular rate and rhythm. No extra sounds. Abdomen: Soft, nontender. Bowel sounds positive. No organomegaly. No masses or hernia. No rigidi ty or rebound. Extremities: No clubbing, or cyanosis. Cellulitis to right leg. Neurologic: Alert, awake, oriented x3. No acute focal deficits appreciated. Lymph Nodes: No cervical or axillary lymphadenopathy. Investigations: Labs were reviewed. Assessment And Recommendations: 1.Atrial fibrillation with borderline heart rate. Discontinue beta-celestino and start him on sotalol 80 mg twice a day and monitor QTc interval with daily EKG and if not contraindicated, start him on a nticoagulation with Eliquis 5 mg twice a day. 2.Hypertension. Blood pressure is controlled. SR/MODL Voice ID: [id number] Report ID: [id number]
[2021-11-26 20:54] VITALS: O2SAT 97
[2021-11-27] MEDS: VANCOMYCIN 2.25 GM in NA CHLORIDE 0.9% 500 ML IVPB SCH ×2 (04:59→11:45)
[2021-11-27] MEDS: TRAMADOL HCL 50 MG TAB PO PRN (05:03)
[2021-11-27] MEDS: SOTALOL HCL 80 MG TAB PO SCH (05:04)
[2021-11-27] MEDS: IBUPROFEN 400 MG TAB PO PRN (06:33)
--- NOTE | 2021-11-27 07:04 | ECHO ---
HEIGHT: 6 ft 5 in WEIGHT: 370 lb 0 oz DATE OF STUDY: 11/24/[address]: Guille Mishra MD 2-DIMENSIONAL: YES M.MODE: YES DOPPLER: YES COLOR FLOW: YES TDS: NO PORTABLE: NO DEFINITY: NO BUBBLE STUDY: NO DIAGNOSIS: NEW ONSET OF ATRIAL FIBRILLATION CARDIAC HISTORY: CATHERIZATION: NO SURGERY: NO PROSTHETIC VALVE: NO PACEMAKER: NO MEASUREMENTS (cm) DIASTOLIC (NORMALS) SYSTOLIC (NORMALS) IVSd 1.1 (0.6-1.2) LA Diam 3.3 (1.9-4.0) LVEF 59% LVIDd 4.2 (3.5-5.7) LVIDs 2.9 (2.0-3.5) %FS 31% LVPWd 1.5 (0.6-1.2) Ao Diam 3.2 (2.0-3.7) 2 DIMENSIONAL ASSESSMENT: RIGHT ATRIUM: NORMAL LEFT ATRIUM: NORMAL RIGHT VENTRICLE: NORMAL LEFT VENTRICLE: NORMAL TRICUSPID VALVE: NORMAL MITRAL VALVE: NORMAL PULMONIC VALVE: NORMAL AORTIC VALVE: NORMAL PERICARDIAL EFFUSION: NONE AORTIC ROOT: NORMAL LEFT VENTRICULAR WALL MOTION: NORMAL DOPPLER/COLOR FLOW: MILD TRICUSPID REGURGITATION. COMMENTS: NORMAL LEFT VENTRICULAR EJECTION FRACTION 55-60%. ATRIAL FIBRILLATION. MILD TRICUSPID REGURGITATION. TECHNOLOGIST: Sue ELDRIDGE
[2021-11-27] MEDS: RIVAROXABAN 15 MG TABLET PO SCH (08:03)
[2021-11-27] MEDS: CEFEPIME 2 GM in NA CHLORIDE 0.9% 100 ML IV SCH (08:04)
--- NOTE | 2021-11-27 11:15 | EKG ---
Test Date: 2021-11-26 Test Time: 07:39:56 Tile Machine Operator: MELISSA MEASUREMENT RESULTS: Intervals: Rate: 86 MA: QRSD: 98 QT: 360 QTc: 430 [place]: P: MA: QRS: 32 T: 14 INTERPRETIVE STATEMENTS: Atrial fibrillation Abnormal ECG Compared to ECG 11/23/2021 13:42:57 No significant changes Electronically Signed On 11-27-21 11:12:20 CDT by Marcelino Alvarado
--- NOTE | 2021-11-27 11:25 | EKG ---
Test Date: 2021-11-23 Test Time: 13:42:57 Tar Roofer: MEASUREMENT RESULTS: Intervals: Rate: 101 [place]: QRSD: 98 QT: 338 QTc: 438 [place]: P: AK: QRS: 74 T: 6 INTERPRETIVE STATEMENTS: Atrial fibrillation with rapid ventricular response Abnormal ECG Compared to ECG 11/23/2016 08:47:54 Sinus bradycardia no longer present Electronically Signed On 11-27-21 11:14:07 CDT by Marcelino Alvarado
--- NOTE | 2021-11-27 12:25 | P.DS ---
Admission Date: 11/23/21 Discharge Date: 11/27/21 Disposition: ROUTINE DISCHARGE Discharge Condition: FAIR Reason for Admission: RLE cellulitis, failed outpatient therapy - Problems (1) Peripheral edema Current Visit: Yes Status: Acute (2) Morbid obesity due to excess calories Current Visit: Yes Status: Acute (3) Atrial fibrillation Current Visit: Yes Status: Acute Qualifiers: Atrial fibrillation type: unspecified Qualified Code(s): I48.91 - Unspecified atrial fibrillation (4) Cellulitis of right lower extremity Onset Date: 11/26/16 Current Visit: No Status: Acute Brief History of Present Illness: 56 yo M, PMH: Hypertension, history of prior leg cellulitis x3 presented to ED due to significant erythema and swelling of his right lower extremity of 1 week duration. Treated with Keflex and Bactrim for 5 days. Patient states swelling and pain slightly improved, but continued to be very red, blistered up and was draining some yellowish fluid. He reported subjective fevers at home, general feelings of malaise and not well. In the ED, he was noted be afebrile, with no leukocytosis. Venous and arterial ultrasounds were negative for DVT or flow restriction. Patient received IV cefepime and vancomycin. He was noted to be in new onset atrial fibrillation, mostly rate controlled [id number]. Patient takes Coreg at home for his blood pressure. He was given Lovenox 1 mg/kg in the ED and admitted for further management. Hospital Course: Problem List RLE cellulitis, failed outpatient therapy afib, new onset HTN Patient admitted to the medical floor and treated with IV cefepime and vancomycin He had significant swelling and erythema which improved with treatment. No obvious abscess formation/fluctuance on exam. I suspect venous stasis dermatitis and peripheral edema contributing to his symptoms. ID assisted with antibiotic management. Blood cultures yielded no growth. Legs elevated to improve venous flow. New onset atrial fibrillation, [id number]: 1, for hypertension. Patient seen by cardiology, his home Coreg was changed to Sotalol. Patient was still in A. fib with a sotalol but rate controlled. He was started on full dose Lovenox and transitioned to oral Xarelto. Patient has clinically improved and deemed stable for discharge. Dr. Alvares recommend follow-up with him for arrangement for cardioversion if he does not cardiovert on sotalol. He is prescribed Augmentin and doxycycline to continue treatment for the right lower extremity cellulitis. Vital Signs/Physical Exam: Temp Pulse Resp BP Pulse Ox 97.5 F 93 H 16 150/84 H 97 11/27/21 08:00 11/27/21 08:00 11/27/21 08:00 11/27/21 08:00 11/27/21 08:00 General: Alert HEENT: Mucous membr. moist/pink Neck: JVD not distended Respiratory: Clear to auscultation bilaterally, Normal air movement Cardiovascular: Normal S1 S2, Edema (Bilateral, worse on the right), Irregular heart rate/rhythm Gastrointestinal: Normal bowel sounds, Soft and benign, Non-distended, No tenderness Musculoskeletal: Erythema (Right lower extremity) Integumentary: Other (Right lower extremity venous stasis dermatitis with skin xerosis.) Neurological: Normal speech, Normal strength at 5/5 x4 extr Laboratory Data at Discharge: WBC 8.4 K/uL (4.3-10.9) 11/25/21 03:20 Hgb 14.1 g/dL (13.6-17.9) 11/25/21 03:20 Hct 41.4 % (39.6-49.0) 11/25/21 03:20 Plt Count 291 K/uL (152-406) 11/25/21 03:20 PT 12.9 SECONDS (9.5-12.5) H 11/23/21 13:21 INR 1.17 11/23/21 13:21 Sodium 134 mmol/L (136-145) L 11/26/21 03:15 Potassium 4.0 mmol/L (3.5-5.1) 11/26/21 03:15 BUN 11 mg/dL (7-18) 11/26/21 03:15 Creatinine 0.67 mg/dL (0.55-1.3) 11/26/21 03:15 Glucose 106 mg/dL (74-106) 11/26/21 03:15 Magnesium 1.9 mg/dL (1.8-2.4) 11/24/21 05:45 Total Bilirubin 0.6 mg/dL (0.2-1.0) 11/24/21 05:45 AST 18 U/L (15-37) 11/24/21 05:45 ALT 41 U/L (12-78) 11/24/21 05:45 Alkaline Phosphatase 64 U/L (45-117) 11/24/21 05:45 Home Medications: Aspirin [Adult Low Dose Aspirin EC] 81 mg PO DAILY 11/23/16 Olmesartan/Hydrochlorothiazide [Benicar Hct 20-12.5 mg Tablet] 1 each PO DAILY 11/23/16 Amox/Clavulanate [Augmentin 875-125 Tab] 1 each PO BID #12 tab 11/27/21 Doxycycline Hyclate 100 mg PO BID #12 capsule 11/27/21 Furosemide [Lasix] 20 mg PO DAILY #30 tab 11/27/21 Rivaroxaban [Xarelto*] 15 mg PO BIDWM #60 tablet 11/27/21 Sotalol HCl [Betapace*] 80 mg PO BID 6AM 6PM #60 tab 11/27/21 traMADol HCL [Ultram*] 50 mg PO Q8H PRN #15 tab 11/27/21 New Medications: Amox/Clavulanate [Augmentin 875-125 Tab] 1 each PO BID #12 tab Sotalol HCl [Betapace*] 80 mg PO BID 6AM 6PM #60 tab Doxycycline Hyclate 100 mg PO BID #12 capsule Furosemide [Lasix] 20 mg PO DAILY #30 tab traMADol HCL [Ultram*] 50 mg PO Q8H PRN #15 tab PRN Reason: Pain Scale 5-7 (Moderate) Rivaroxaban [Xarelto*] 15 mg PO BIDWM #60 tablet Diet: AHA Activity: Ad zachariah Followup: Zaire Alvares MD [ACTIVE - CAN ADMIT] - 1 Week Re Esparza NP [Primary Care Provider] - 1-2 Weeks Time spent managing pt's care (in minutes): 38
[2021-11-27 13:20] VITALS: BP 166/80; TEMP 97.4
[2021-11-27] MEDS ORDERED: DOXYCYCLINE 100 MG CAP PO SCH (21:00)
[2021-11-27] MEDS ORDERED: AMOX/K CLAV 875 MG TAB PO SCH (21:00)
[2021-11-28] MEDS ORDERED: VANCOMYCIN 2 GM in NA CHLORIDE 0.9% 500 ML IVPB SCH (09:00)
--- NOTE | 2021-11-30 16:41 | PN ---
Date of Progress Note: 11/27/2021 Mr. Segundo is a 56-year-old, came in with atrial fibrillation and was placed on sotalol 80 mg b.i.d. artemio Alvares. This morning, he is still in atrial fibrillation, but his rate is much better controll ed. He has received a total of 3 dosages. He is asymptomatic. He can go home and we will discuss f urther studies down the road as well as possible cardioversion depending how he does with atrial fibr illation. JUSTIN/MODL Voice ID: [id number] Report ID: [id number]
== END 2021-11-27 13:57 | disposition home or self-care (01) | DRG 603 ==
LOC: ER 12:10 → ERHOLD 16:41 → 2ND 22:23
PROVIDERS: ADMIT Hospitalist; ATTEND Internal Medicine
DX: L03.115 Cellulitis of right lower limb (principal); Z68.41 Body mass index [BMI] 40.0-44.9, adult; I48.91 Unspecified atrial fibrillation; E66.01 Morbid (severe) obesity due to excess calories; I10 Essential (primary) hypertension; Z79.01 Long term (current) use of anticoagulants; Z79.82 Long term (current) use of aspirin; Z79.899 Other long term (current) drug therapy; Z87.891 Personal history of nicotine dependence; Z20.822 Contact with and (suspected) exposure to COVID-19
CPT/HCPCS: 0240U; 36415; 71045; 80048; 80053; 80076; 80202; 83036; 83605; 83735; 83880; 84145; 84484; 85025; 85027; 85610; 86140; 87040; 93005; 93306; 93926; 93971; 94760; 96372; 99285; J0692; J1650; J3370; J7040

== ENCOUNTER 2022-01-08 11:00 | Day surgery (SDC) | payer BC ==
[2022-01-05 14:49] LABS: Absolute Lymphocytes (CBC) 1.5 K/uL (0.7-4.9); Hematocrit 42.2 % (39.6-49.0); Lymphocytes % 23.8 % (15.3-44.8); MPV 8.3 fL (7.6-11.3); RBC Red Blood Cell Count 4.64 M/uL (4.33-5.43)
[2022-01-05 15:01] LABS: Potassium 3.7 mmol/L (3.5-5.1)
[2022-01-05 15:42] LABS: Protime INR 1.2
--- NOTE | 2022-01-08 10:09 | EKG ---
Test Date: 2022-01-05 Test Time: 12:45:49 Finish Filer: ELIZABETH MEASUREMENT RESULTS: Intervals: Rate: 81 NE: QRSD: 96 QT: 382 QTc: 443 [place]: P: NE: QRS: 59 T: 58 INTERPRETIVE STATEMENTS: Atrial fibrillation Nonspecific ST abnormality, probably digitalis effect Abnormal ECG Compared to ECG 11/26/2021 07:39:56 ST (T wave) deviation now present Electronically Signed On 01-08-22 10:03:10 CDT by Marcelino Alvarado
[~2022-01-08 11:00] MED LIST: ATROPINE SULF 1 MG/10 ML SYR IV ONE; FENTANYL CITR 100 MCG/2 ML ONE; FLUMAZENIL 0.1 MG/ML (5 mL VIAL) IV ONE; METOPROLOL TARTRATE 5 MG/5 ML INJ IV ONE; MIDAZOLAM HCL 10 ML ONE; NA CHLORIDE 0.9% 500 ML ONE
[2022-01-08 14:22] VITALS: BP 110/50; O2SAT 98
--- NOTE | 2022-01-09 09:35 | EKG ---
Test Date: 2022-01-08 Test Time: 12:23:24 Money Room Teller: DARI MEASUREMENT RESULTS: Intervals: Rate: 55 SD: 192 QRSD: 104 QT: 472 QTc: 451 [place]: P: 59 SD: 192 QRS: 38 T: 59 INTERPRETIVE STATEMENTS: Sinus bradycardia Nonspecific T wave abnormality Abnormal ECG Compared to ECG 01/05/2022 12:45:49 T-wave abnormality now present Atrial fibrillation no longer present ST (T wave) deviation no longer present Electronically Signed On 01-09-22 09:32:33 CDT by Marcelino Alvarado
== END 2022-01-08 13:50 | disposition home or self-care (01) ==
LOC: CCL 11:00
PROVIDERS: ATTEND Internal Medicine
DX: I48.91 Unspecified atrial fibrillation (principal); I10 Essential (primary) hypertension; G47.30 Sleep apnea, unspecified; R60.9 Edema, unspecified; Z20.822 Contact with and (suspected) exposure to COVID-19; F17.220 Nicotine dependence, chewing tobacco, uncomplicated; Z82.49 Family history of ischemic heart disease and other diseases of the circulatory system
CPT/HCPCS: 93005 ×2; 85025; 80048; 36415; 85610; 85730; 92960; U0003; J2250; J3010; J7040

== ENCOUNTER 2023-12-15 11:12 | Emergency (ER) | payer BC ==
[2023-12-15 12:13] LABS: Absolute Basophils 0.1 K/uL (0-0.5); Absolute Eosinophils 0.1 K/uL (0-0.5); Absolute Monocytes 0.6 K/uL (0.1-1.3); Absolute Neutrophil 4.4 K/uL (1.8-8.0); Basophils % 1.1 % (0-1.3); Eosinophils % 2.4 % (0-4.4); Hematocrit 31.1 % (39.6-49.0); Hemoglobin 10.6 g/dL (13.6-17.9); Lymphocytes % 16.8 % (15.3-44.8); MCH 32.8 pg (27.0-35.0); MCHC 34.1 g/dL (32.0-36.0); MCV 96.1 fL (80-100); MPV 7.4 fL (7.6-11.3); Monocytes % 9.1 % (3.3-12.3); Neutrophils % 70.6 % (41.7-73.7); Nucleated Red Blood Cells % 0.1 % (0-0); Platelets 262 thou/uL (152-406); RBC Red Blood Cell Count 3.24 M/uL (4.33-5.43); Red Cell Distribution Width 13.6 % (12.1-15.2)
[2023-12-15 12:22] LABS: PT Prothrombin Time 14.9 SECONDS (9.5-12.5); PTT, Activated Partial Thromb 30.3 SECONDS (24.3-36.9); Protime INR 1.37
[2023-12-15 12:29] LABS: Albumin 3.1 g/dL (3.4-5.0); Albumin/Globulin Ratio 0.8 (1.1-1.8); Anion Gap 7.6 mEq/L (5.0-15.0); Bilirubin Total 1.7 mg/dL (0.2-1.0); Globulin 4.1 g/dL (2.3-3.5); Potassium 3.6 mEq/L (3.5-5.1); Protein, Total 7.2 g/dL (6.4-8.2)
--- NOTE | 2023-12-15 12:55 | RAD REPORT ---
EXAM DESCRIPTION: US - Extremity Venous [facility] - 12/15/2023 12:43 pm CLINICAL HISTORY: Swelling, redness COMPARISON: None. TECHNIQUE: Real-time sonographic evaluation of the left lower extremity deep venous system was perfo rmed. FINDINGS: Normal compressibility, flow augmentation, phasic flow and spontaneous flow is identified in the left lower extremity deep venous system. No intraluminal filling defects seen. IMPRESSION: No DVT in the left lower extremity.
[2023-12-15] MEDS ORDERED: CEFEPIME 2 GM VIAL ONE (14:44)
[2023-12-15] MEDS ORDERED: NA CHLORIDE 0.9% 100 ML ONE (14:44)
--- NOTE | 2023-12-15 16:17 | EDPHYS ---
[facility] Name: Chip Segundo III Age: 58 yrs Sex: Male : 1965 Arrival Date: 12/15/2023 Time: 11:12 Bed 13 Private MD: SANIA Physician Yovanny Velazquez HPI: 12/14 11:52 This 58 yrs old Male presents to ER via Wheelchair with complaints of Knee Pain, Leg rt Swelling. 11:52 Patient is about 1 week out from a total knee replacement surgery on the left leg. rt States has been doing well postoperatively. There is a vacuum that is in place due to difficult anatomy per the patient's report. This vacuum is scheduled to be removed tomorrow. Reports over the past 48 hours, he has developed worsening redness, swelling to essentially the entirety of the left leg. Denies any significant pain, fever, chills at this time. Denies other complaints at this time, symptoms are moderate in severity, no other aggravating or alleviating factors.. Historical: - Allergies: 11:23 No Known Allergies; ld1 - PMHx: 11:23 Cellulitis; Hypertension; ld1 - PSHx: 11:23 knee surgery (Hypertension); ld1 - Immunization history:: Adult Immunizations up to date. - Infectious Disease History:: Denies. - Social history:: Smoking status: Patient reports use of chewing tobacco. Patient denies any tobacco usage or history of. - Family history:: not pertinent. ROS: 11:52 Constitutional: Negative for fever, chills, and weight loss, Cardiovascular: Negative rt for chest pain, palpitations, and edema, Respiratory: Negative for shortness of breath, cough, wheezing, and pleuritic chest pain, Abdomen/GI: Negative for abdominal pain, nausea, vomiting, diarrhea, and constipation, Neuro: Negative for headache, weakness, numbness, tingling, and seizure, 11:52 MS/extremity: Positive for contusion, erythema, swelling, Exam: 11:52 Constitutional: This is a well developed, well nourished patient who is awake, alert, rt and in no acute distress. Head/Face: Normocephalic, atraumatic. Chest/axilla: Normal chest wall appearance and motion. Nontender with no deformity. No lesions are appreciated. Cardiovascular: Regular rate and rhythm with a normal S1 and S2. No gallops, murmurs, or rubs. Normal PMI, no JVD. No pulse deficits. Respiratory: Lungs have equal breath sounds bilaterally, clear to auscultation and percussion. No rales, rhonchi or wheezes noted. No increased work of breathing, no retractions or nasal flaring. Abdomen/GI: Soft, non-tender, with normal bowel sounds. No distension or tympany. No guarding or rebound. No evidence of tenderness throughout. Neuro: Awake and alert, GCS 15, oriented to person, place, time, and situation. Cranial nerves II-XII grossly intact. Motor strength 5/5 in all extremities. Sensory grossly intact. Cerebellar exam normal. Normal gait. 11:52 Musculoskeletal/extremity: Erythema, swelling, scattered ecchymosis noted to the left leg from about the proximal third of the thigh distally. Pulses, motor, sensation are intact, no significant tenderness.. 13:20 ECG was reviewed by the Attending Physician. rt Vital Signs: 11:24 BP 138 / 76; Pulse 89; Resp 18; Temp 98; Pulse Ox 97% ; Weight 170.1 kg; Height 6 ft. 5 ld1 in. ; Pain 2/10; 12:16 BP 132 / 74; Pulse 89; Resp 18; Pulse Ox 97% on R/A; Pain 4/10; ld2 14:08 BP 135 / 83; Pulse 77; Resp 20; Pulse Ox 100% on R/A; Pain 3/10; ld2 14:40 BP 152 / 94; Pulse 82; Resp 18; Pulse Ox 99% ; cp4 15:30 BP 123 / 82; Pulse 87; Resp 18; Pulse Ox 100% ; cp4 16:30 BP 122 / 77; Pulse 83; Resp 18; Pulse Ox 98% ; cp4 11:24 Body Mass Index 44.47 (170.10 kg, 195.58 cm) ld1 11:24 Pain Scale: Adult ld1 12:16 Pain Scale: Adult ld2 14:08 Pain Scale: Adult ld2 Nahum Coma Score: 12:16 Eye Response: spontaneous(4). Motor Response: obeys commands(6). Verbal Response: ld2 oriented(5). Total: 15. 14:08 Eye Response: spontaneous(4). Motor Response: obeys commands(6). Verbal Response: ld2 oriented(5). Total: 15. MDM: 11:23 Patient medically screened. rt 19:35 Differential Diagnosis Cellulitis, DVT, surgical site infection. Data reviewed: vital rt signs, nurses notes, lab test result(s), EKG, radiologic studies. Consideration of Admission/Observation Escalation of care including admission/observation considered. Management of patient was discussed with the following: Operator Lights: Discussed with orthopedist at [facility], accepts patient in transfer. I considered the following discharge prescriptions or medication management in the emergency department Medications were administered in the Emergency Department. See MAR. Test considered but Not performed: CT: Do not suspect necrotizing infection, CT scan not indicated. Care significantly affected by the following chronic conditions: Hypertension. Counseling: I had a detailed discussion with the patient and/or guardian regarding the historical points, exam findings, and any diagnostic results supporting the discharge/admit diagnosis, lab results, radiology results, the need to transfer to another facility, Patient is less than 1 week postoperative, we will transfer patient to where his surgeon is. For continuity of care. Response to treatment: There is no appreciated change of the patient's symptoms at this time. 12/14 11:39 Order name: Blood Culture Adult (2) rt 12/14 11:39 Order name: CBC with Diff; Complete Time: 12:26 rt 12/14 11:39 Order name: CMP; Complete Time: 12:33 rt 12/14 11:39 Order name: Lactate w/ 2H reflex if indic.; Complete Time: 12:33 rt 12/14 11:39 Order name: Protime (+inr); Complete Time: 12:26 rt 12/14 11:39 Order name: Ptt, Activated; Complete Time: 12:26 rt 12/14 11:39 Order name: Extremity Venous Uni Ltd US; Complete Time: 12:58 rt 12/14 11:39 Order name: EKG; Complete Time: 11:40 rt 12/14 11:39 Order name: Accucheck; Complete Time: 12:11 rt 12/14 11:39 Order name: Cardiac monitoring; Complete Time: 12:11 12/14 11:39 Order name: EKG - Nurse/Tech; Complete Time: 12:55 rt 12/14 11:39 Order name: IV Saline Lock - Large Bore; Complete Time: 12:11 12/14 11:39 Order name: Labs collected and sent; Complete Time: 12:11 rt 12/14 11:39 Order name: O2 Per Protocol; Complete Time: 12:11 rt 12/14 11:39 Order name: O2 Sat Monitoring; Complete Time: 12:11 rt 12/14 11:39 Order name: Vital Signs; Complete Time: 12:11 rt EC:20 Rate is 74 beats/min. Rhythm is irregularly irregular, A fib with No ectopy. QRS [place] rt is Normal. [place] interval is normal. QRS interval is normal. QT interval is normal. No Q waves. No ST changes noted. Interpreted by me. Administered Medications: 14:58 Drug: Cefepime IVPB 2 grams IVPB at 200 ml/hr once over 30 mins; (mix in NS 100 mL) cp4 Route: IVPB; Rate: 200 ml/hr; Infused Over: 30 mins; Site: right antecubital; 16:00 Follow up: Response: No adverse reaction; IV Status: Completed infusion cp4 17:03 Drug: vancoMYCIN IVPB 1 grams IVPB once over 2 hrs Route: IVPB; Infused Over: 2 hrs; cp4 Site: right antecubital; 17:06 Follow up: Response: No adverse reaction; IV Status: Infusion continued upon transfer cp4 Disposition Summary: 12/15/23 16:16 Transfer Ordered Notes: Transfer Location: Other Acute Care Facility rt Reason: Higher level of care rt Condition: Stable rt Problem: new rt Symptoms: are unchanged rt Accepting Physician: (12/15/23 17:16) cp4 Diagnosis - Cellulitis to left lower extremity rt Discharge Instructions: - Discharge Summary Sheet cp4 Forms: - Medication Reconciliation Form rt - SBAR form cp4 Signatures: Dispatcher [employer] EDMS Re Haas RN RN ld1 Yovanny Velazquez MD MD rt Stacia Thomson cp4 Corrections: (The following items were deleted from the chart) 11:40 11:40 BLOOD CULTURE*+BA.LAB.BRZ ordered. EDMS EDMS 11:40 11:40 CBC+H.LAB.BRZ ordered. EDMS EDMS 11:40 11:40 COMPREHENSIVE METABOLIC PANEL+C.LAB.BRZ ordered. EDMS EDMS 11:40 11:40 LACTATE+C.LAB.BRZ ordered. EDMS EDMS 11:40 11:40 PROTIME (+INR)+COAG.LAB.BRZ ordered. EDMS EDMS 1140 11:40 PTT, ACTIVATED+COAG.LAB.BRZ ordered. EDMS EDMS 17:16 16:16 Dr. mckinney cp4
--- NOTE | 2023-12-15 16:17 | ER ---
Nurse's Notes [facility] Name: Chip Segundo III Age: 58 yrs Sex: Male : 1965 Arrival Date: 12/15/2023 Time: 11:12 Bed 13 Private MD: Diagnosis: Cellulitis to left lower extremity Presentation: 12/14 11:24 Chief complaint: Patient states: L knee pain, swelling, redness getting worse since ld1 Saturday. States he had swelling to both legs before the surgery also. No fever. Coronavirus screen: Client denies travel out of the [place] in the last 14 days. At this time, the client does not indicate any symptoms associated with coronavirus-19. Ebola Screen: Patient denies travel to an Ebola-affected area in the 21 days before illness onset. Initial Sepsis Screen: Does the patient meet any 2 criteria? No. Patient's initial sepsis screen is negative. Does the patient have a suspected source of infection? No. Patient's initial sepsis screen is negative. Risk Assessment: Do you want to hurt yourself or someone else? Patient reports no desire to harm self or others. Onset of symptoms was December 13, 2023. 11:24 Method Of Arrival: Wheelchair ld1 11:24 Acuity: CLINT 2 ld1 14:07 Note Report given to Stacia GRISSOM. ld2 Triage Assessment: 11:27 General: Appears uncomfortable, Behavior is calm, cooperative, appropriate for age. ld1 Pain: Complains of pain in left leg Pain currently is 2 out of 10 on a pain scale. Quality of pain is described as aching. Derm: Reports. Musculoskeletal: Reports pain in left leg. Musculoskeletal: Reports swelling, redness, pain to LLE. Historical: - Allergies: 11:23 No Known Allergies; ld1 - PMHx: 11:23 Cellulitis; Hypertension; ld1 - PSHx: 11:23 knee surgery (Hypertension); ld1 - Immunization history:: Adult Immunizations up to date. - Infectious Disease History:: Denies. - Social history:: Smoking status: Patient reports use of chewing tobacco. Patient denies any tobacco usage or history of. - Family history:: not pertinent. Screenin:49 [facility] ED Fall Risk Assessment (Adult) History of falling in the last 3 months, ld2 including since admission No falls in past 3 months (0 pts) Confusion or Disorientation No (0 pts) Intoxicated or Sedated No (0 pts) Impaired Gait Yes (1 pt) Mobility Assist Device Used Yes (1 pt) Altered Elimination No (0 pt) Score/Fall Risk Level 0 - 2 = Low Risk Oriented to surroundings, Maintained a safe environment, Educated pt \T\ family on fall prevention, incl call for assistance when getting out of bed, Assessed \T\ reinforced patient's understanding of fall precautions, Provided non-skid footwear, Hourly rounding (assess needs \T\ fall precautionary measures) done, Used ambulatory aids as needed (educated on \T\ assisted with). Abuse screen: Denies threats or abuse. Denies injuries from another. Nutritional screening: No deficits noted. Tuberculosis screening: No symptoms or risk factors identified. Assessment: 11:46 Pain: Complains of pain in left leg Pain currently is 8 out of 10 on a pain scale. ld2 Quality of pain is described as aching, Pain began 2-3 days ago. Neuro: No deficits noted. Level of Consciousness is awake, alert, obeys commands, Oriented to person, place, time, situation. Cardiovascular: No deficits noted. Respiratory: Airway is patent Trachea midline Respiratory effort is even, unlabored, Respiratory pattern is regular, symmetrical. GI: No deficits noted. No signs and/or symptoms were reported involving the gastrointestinal system. Derm: Skin surgical incision to left knee. Surgical dressing in place Skin is red, bruised discoloration to left lower extremity. Skin temperature is warm Bruising that is bright red, dark purple, on left leg. Musculoskeletal: Swelling present in left leg PT had left knee replacement sx on 12/08 , states having bruising, swelling, tenderness and severe pain x2-3 days. Pt states he is unable to place weight on left lower extremity. Denies fall or injury to area. Tenderness present in left leg. Vital Signs: 11:24 BP 138 / 76; Pulse 89; Resp 18; Temp 98; Pulse Ox 97% ; Weight 170.1 kg; Height 6 ft. 5 ld1 in. ; Pain 2/10; 12:16 BP 132 / 74; Pulse 89; Resp 18; Pulse Ox 97% on R/A; Pain 4/10; ld2 14:08 BP 135 / 83; Pulse 77; Resp 20; Pulse Ox 100% on R/A; Pain 3/10; ld2 14:40 BP 152 / 94; Pulse 82; Resp 18; Pulse Ox 99% ; cp4 15:30 BP 123 / 82; Pulse 87; Resp 18; Pulse Ox 100% ; cp4 16:30 BP 122 / 77; Pulse 83; Resp 18; Pulse Ox 98% ; cp4 11:24 Body Mass Index 44.47 (170.10 kg, 195.58 cm) ld1 11:24 Pain Scale: Adult ld1 12:16 Pain Scale: Adult ld2 14:08 Pain Scale: Adult ld2 Nahum Coma Score: 12:16 Eye Response: spontaneous(4). Motor Response: obeys commands(6). Verbal Response: ld2 oriented(5). Total: 15. 14:08 Eye Response: spontaneous(4). Motor Response: obeys commands(6). Verbal Response: ld2 oriented(5). Total: 15. ED Course: 11:23 Patient arrived in ED. iw 11:23 Yovanny Velazquez MD is Attending Physician. rt 11:23 Arm band placed on Patient placed in an exam room, on a stretcher. ld1 11:25 Cathie Lipscomb, RN is Primary Nurse. ld2 11:27 Triage completed. ld1 11:49 Patient has correct armband on for positive identification. Allergy band placed. Fall ld2 risk band placed. Bed in low position. Call light in reach. Side rails up X 1. Door closed. Warm blanket given. Verbal reassurance given. Family accompanied patient. 12:10 Inserted saline lock: 20 gauge in right antecubital area, using aseptic technique. ld2 Blood collected. 12:11 Blood Culture Adult (2) Sent. ld2 12:11 CBC with Diff Sent. ld2 12:11 Lactate w/ 2H reflex if indic. Sent. ld2 12:11 CMP Sent. ld2 12:11 Protime (+inr) Sent. ld2 12:11 Ptt, Activated Sent. ld2 12:16 No apparent distress. US at bedside at this time. ld2 12:45 Extremity Venous Uni Ltd US In Process Unspecified. EDMS 12:55 EKG done, by ED staff, reviewed by Yovanny Velazquez MD. ld2 14:55 initiated a transfer with Aury from the [facility] ED transfer center at the request of the eb patient. 15:[address] Hawkins the orthopedic telephone information clerk for [facility] with Dr. Caroline carmona for patient transfer consultation. 17:14 Provided Education on: transfer. cp4 17:14 No provider procedures requiring assistance completed. Patient transferred, IV remains cp4 in place. Administered Medications: 14:58 Drug: Cefepime IVPB 2 grams IVPB at 200 ml/hr once over 30 mins; (mix in NS 100 mL) cp4 Route: IVPB; Rate: 200 ml/hr; Infused Over: 30 mins; Site: right antecubital; 16:00 Follow up: Response: No adverse reaction; IV Status: Completed infusion cp4 17:03 Drug: vancoMYCIN IVPB 1 grams IVPB once over 2 hrs Route: IVPB; Infused Over: 2 hrs; cp4 Site: right antecubital; 17:06 Follow up: Response: No adverse reaction; IV Status: Infusion continued upon transfer cp4 Medication: 17:15 VIS not applicable for this client. cp4 Outcome: 16:16 ER care complete, transfer ordered by MD. rt 17:14 Transferred by ground EMS Note: [facility] cp4 17:14 Condition: stable 17:14 Instructed on the need for transfer, Demonstrated understanding of instructions, follow-up care, 17:16 Patient left the ED. cp4 Signatures: Dispatcher [employer] EDMS Laura Jennings, RN Ursula Adler Lauren, RN RN ld1 Yovanny Velazquez MD MD rt Potter, Christina cp4 Cathie Lipscomb RN RN ld2
[2023-12-15] MEDS ORDERED: NA CHLORIDE 0.9% 250 ML ONE (16:46)
[2023-12-15] MEDS ORDERED: VANCOMYCIN 1 GM/VIAL ONE (16:46)
[2023-12-15 17:52] VITALS: BP 122/77; TEMP 98; O2SAT 98
== END 2023-12-15 17:16 ==
LOC: ER 11:12
DX: L03.116 Cellulitis of left lower limb (principal); Z96.652 Presence of left artificial knee joint; F17.220 Nicotine dependence, chewing tobacco, uncomplicated
CPT/HCPCS: 96365; 87040 ×2; 85025; 36415; 85610; 83605; 85730; 80053; 93971; 96375; 99285; J0692; J7050; 93005

== ENCOUNTER 2023-12-30 15:58 | Inpatient (IN) | payer BC ==
[2023-12-30] MEDS: FUROSEMIDE 40 MG/4 ML VIAL IV ONE (18:14)
[2023-12-30 18:36] LABS: Absolute Basophils 0.1 K/uL (0-0.5); Absolute Eosinophils 0.2 K/uL (0-0.5); Absolute Lymphocytes (CBC) 1.1 K/uL (0.7-4.9); Absolute Monocytes 0.5 K/uL (0.1-1.3); Basophils % 1.2 % (0-1.3); Eosinophils % 3.6 % (0-4.4); Hematocrit 29.1 % (39.6-49.0); Lymphocytes % 18.9 % (15.3-44.8); MCH 31.9 pg (27.0-35.0); MCHC 34.5 g/dL (32.0-36.0); MCV 92.6 fL (80-100); Monocytes % 8.1 % (3.3-12.3); Neutrophils % 68.2 % (41.7-73.7); Nucleated Red Blood Cells % 0.2 % (0-0); Platelets 288 thou/uL (152-406); RBC Red Blood Cell Count 3.14 M/uL (4.33-5.43); Red Cell Distribution Width 13.6 % (12.1-15.2)
--- NOTE | 2023-12-30 18:38 | RAD REPORT ---
EXAM DESCRIPTION: RAD - Chest Pa And Lat (2 Views) - 12/30/2023 6:05 pm CLINICAL HISTORY: CHF Chest pain. COMPARISON: Chest Pa And Lat (2 Views) dated 03/07/2022; Chest Single View dated 11/23/2021; Chest Sin gle View dated 11/23/2016 FINDINGS: Mild interstitial pulmonary edema. Heart is mildly enlarged in size. No displaced fracture s. Cervical hardware plate. IMPRESSION: Mild CHF.
[2023-12-30 19:01] LABS: Albumin 3.4 g/dL (3.4-5.0); Albumin/Globulin Ratio 0.8 (1.1-1.8); Bilirubin Total 0.9 mg/dL (0.2-1.0); Globulin 4.2 g/dL (2.3-3.5); Magnesium 1.9 mg/dL (1.6-2.4); Protein, Total 7.6 g/dL (6.4-8.2); Thyroid Stimulating Hormone 2.07 uIU/mL (0.358-3.740)
[2023-12-30] MEDS: SOTALOL HCL 80 MG TAB PO SCH (20:36)
[2023-12-30] MEDS: APIXABAN 5 MG TABLET PO SCH (20:37)
[2023-12-30] MEDS: carvediloL 6.25 MG TAB PO SCH (20:37)
[2023-12-30] MEDS ORDERED: TIZANIDINE 4 MG TABLET PO PRN (21:00)
[2023-12-30] MEDS: SMZ./TMP. 800/160 MG TABLET PO SCH ×2 (21:00→22:15)
[2023-12-30] MEDS: HYDROCODONE/APAP 10/325 TAB PO PRN (22:01)
[2023-12-30] MEDS: AMOX/K CLAV 875 MG TAB PO SCH (22:01)
[2023-12-30] MEDS: MAGNESIUM OXIDE 400 MG TAB PO SCH (22:02)
[2023-12-31 03:52] LABS: Absolute Basophils 0.1 K/uL (0-0.5); Absolute Eosinophils 0.2 K/uL (0-0.5); Absolute Lymphocytes (CBC) 1.2 K/uL (0.7-4.9); Absolute Monocytes 0.5 K/uL (0.1-1.3); Absolute Neutrophil 3.2 K/uL (1.8-8.0); Basophils % 1.2 % (0-1.3); Eosinophils % 4.3 % (0-4.4); Hematocrit 26.6 % (39.6-49.0); Hemoglobin 9.3 g/dL (13.6-17.9); Lymphocytes % 23.7 % (15.3-44.8); MCH 32.4 pg (27.0-35.0); MCHC 35.1 g/dL (32.0-36.0); MCV 92.3 fL (80-100); MPV 8.1 fL (7.6-11.3); Monocytes % 9.5 % (3.3-12.3); Neutrophils % 61.3 % (41.7-73.7); Nucleated Red Blood Cells % 0.1 % (0-0); Platelets 261 thou/uL (152-406); RBC Red Blood Cell Count 2.88 M/uL (4.33-5.43); Red Cell Distribution Width 13.7 % (12.1-15.2)
[2023-12-31 04:18] LABS: Anion Gap 9.9 mEq/L (5.0-15.0); Potassium 3.9 mEq/L (3.5-5.1); Troponin High Sensitivity 3.1 pg/mL (<58.9)
--- NOTE | 2023-12-31 05:21 | HP ---
Date of Admission: 12/30/2023 Chief Complaint: Leg swelling and shortness of breath. History Of Present Illness: This is a 58-year-old very pleasant male patient, came into office today with his with above-mentioned complaints and problems. The patient had left knee replacement surgery on 12/09/2023 and on 12/15/2023, he came to our hospital emergency room with redness of the lower part of the surgical incision site and skin of the leg below that area. After he was evaluated, he was sent back to [facility] under care of his orthopedic shoe fitter because of concern about infection. The patient had cellulitis of the leg, but we wanted to make sure that there was no deep infection considering recent left knee arthroplasty procedure. As I understand by talking to the patient and his today that he was kept in hospital for 4 days, was given antibiotic, was seen by Infectious Disease specialist, and was discharged to go home with oral Augmentin and Bactrim and he will finish this last dose of antibiotic tomorrow morning. The patient started to have bilateral leg swelling even prior to this left knee surgery and it has gotten worse over period of time. In fact, he has gained almost 20 pounds in last 1 month between last office visit and today and the patient reports that since his knee surgery, he is having increasing problem with shortness of breath with minimal activity, now he gets short of breath just walking across the room. He is also having trouble breathing at nighttime and he is not able to sleep in the bed, so since his knee surgery after he came home with these complaints, he is basically sleeping in his recliner with his head elevated. After he was evaluated, decision was made to admit him to the hospital with concerns about congestive heart failure. Allergies: NO KNOWN ALLERGIES. Medications: Takes hydrocodone as needed for pain, amlodipine 5 mg 2 times a day, Eliquis 5 mg 2 times a day, sotalol 120 mg 2 times a day, olmesartan 40 mg daily, carvedilol 12.5 mg 2 times a day, and tizanidine 4 mg 3 times a day as needed. Past Medical History: Significant for hypertension, hyperlipidemia, atrial fibrillation, had cardioversion done in 2020. Past Surgical History: Cervical spine surgery on July 01, 2023 and left knee surgery in 1990 and left knee replacement surgery done on December 09, 2023. Family History: Father , had coronary artery disease. Mother , had coronary artery disease. Sister had liver cancer. Social History: Positive for tobacco use in form of chewing tobacco and alcohol use significant for 6 to 12 beers on a daily basis. Review of Systems: Constitutional: Significant for weight gain. Respiratory: Significant for shortness of breath. Cardiovascular: Significant for leg swelling and paroxysmal nocturnal dyspnea and orthopnea. All other systems reviewed and negative. Physical Examination: Vital Signs: Upon admission, temperature 97.1, pulse 76, respiratory rate 19, blood pressure 134/68, oxygen saturation 98% on 2 L nasal cannula oxygen. Height 6 feet 5 inches, weight 408 pounds. General: Awake, alert, oriented, not in distress. HEENT: Head atraumatic, normocephalic. Conjunctivae nonerythematous. Sclerae white. Mouth, no thrush or edema noted. Ears/Nose, no mass, lesion, discharge noted. Neck: Supple. No JVD, lymph nodes, bruit, thyromegaly noted. Lungs: Presence of scattered rhonchi in both lung [place], not using accessory muscles of respiration at rest. Heart: Normal heart sounds, no murmur or gallop. Abdomen: Soft, bowel sounds normal. No guarding, rigidity, tenderness, mass, hepatosplenomegaly, distention, or bruit noted. Extremities: Bilateral grade 4 pedal edema extending all the way to his both upper thighs and gluteal region. Skin: No rash, ulcer, cellulitis. Lymphatics: No lymph node enlargement in neck, supraclavicular, infraclavicular region. Neuro: No focal neurological deficit. Chest: Unremarkable. External Genitalia: Deferred. Rectal: Deferred. Laboratory Data: White count 5.8, hemoglobin 10, platelets 288. Sodium 122, potassium 5, chloride 94, bicarb 26, BUN 20, creatinine 1.32, glucose 96. Liver function tests unremarkable. ProBNP 1195. TSH 2.070. Magnesium 1.9. Chest x- ray shows changes of congestive heart failure. Impression: 1. Congestive heart failure, chronic, diastolic, with acute exacerbation. 2. Hypertension. 3. Hyperlipidemia. 4. Chronic atrial fibrillation. 5. Chronic anticoagulation therapy. 6. Hyponatremia. Plan: We will go ahead and admit the patient to hospital for further evaluation and management of this problem. The patient is appropriate for inpatient and is expected to spend 2 midnights in hospital. 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 Consult demolitionist. He normally sees Dr. Alvares on outpatient basis and I will consult him. We will get echo with Doppler to evaluate his left ventricular ejection fraction. I did discuss with him and his regarding diastolic and systolic congestive heart failure and depending on the ejection fraction. Treatment plan will be made regarding medical management. We will continue his sotalol for atrial fibrillation along with Eliquis as he takes at home. Continue antihypertensive medication per order. Monitor blood pressure. Adjust blood pressure medication as it becomes necessary. Monitor intake, output, daily weight. For hyponatremia, we will monitor his blood work with tomorrow morning's electrolytes and renal function. This is likely due to underlying congestive heart failure problem. Monitor daily weight and strict intake and output. Details and plan of treatment discussed with the patient and I will see him tomorrow morning for followup. Total time spent today was 90 minutes. ANGEL/PIO Voice ID: [id number] MTDD
[2023-12-31] MEDS: POTASSIUM CL SA 10 MEQ TAB PO ONE (08:11)
[2023-12-31] MEDS: FUROSEMIDE 40 MG/4 ML VIAL IV SCH (08:11)
[2023-12-31] MEDS: carvediloL 6.25 MG TAB PO SCH (12:07)
--- NOTE | 2023-12-31 14:00 | EKG ---
Test Date: 2023-12-30 Test Time: 20:27:27 Machine Bookkeeper: SANDRA MEASUREMENT RESULTS: Intervals: Rate: 82 OK: QRSD: 102 QT: 406 QTc: 474 [place]: P: OK: QRS: 54 T: -24 INTERPRETIVE STATEMENTS: Atrial fibrillation Low voltage QRS Nonspecific ST and T wave abnormality, probably digitalis effect Prolonged QT Abnormal ECG Compared to ECG 12/15/2023 12:50:43 ST (T wave) deviation now present Prolonged QT interval now present Electronically Signed On 12-31-23 13:58:19 CDT by Zaire Alvares
--- NOTE | 2023-12-31 14:05 | ECHO ---
HEIGHT: 6 ft 5 in WEIGHT: 397 lb 3.2 oz DATE OF STUDY: 12/31/[address]: Jeremy Biggs MD 2-DIMENSIONAL: YES M.MODE: YES DOPPLER: YES COLOR FLOW: YES TDS: PORTABLE: YES DEFINITY: BUBBLE STUDY: DIAGNOSIS: CONGESTIVE HEART FAILURE CARDIAC HISTORY: CATHERIZATION: SURGERY: PROSTHETIC VALVE: PACEMAKER: MEASUREMENTS (cm) DIASTOLIC (NORMALS) SYSTOLIC (NORMALS) IVSd 1.0 (0.6-1.2) LA Diam 4.1 (1.9-4.0) LVEF 67% LVIDd 4.8 (3.5-5.7) LVIDs 3.0 (2.0-3.5) %FS 37% LVPWd 1.2 (0.6-1.2) Ao Diam 3.2 (2.0-3.7) 2 DIMENSIONAL ASSESSMENT: RIGHT ATRIUM: NORMAL LEFT ATRIUM: NORMAL RIGHT VENTRICLE: NORMAL LEFT VENTRICLE: NORMAL TRICUSPID VALVE: MILD TRICUSPID REGURGITATION MITRAL VALVE: MILD MITRAL REGURGITATION PULMONIC VALVE: NORMAL AORTIC VALVE: NORMAL PERICARDIAL EFFUSION: NONE AORTIC ROOT: NORMAL LEFT VENTRICULAR WALL MOTION: NORMAL DOPPLER/COLOR FLOW: SEE BELOW COMMENTS: 1. NORMAL LEFT VENTRICULAR EJECTION FRACTION 60-65% 2. NORMAL WALL MOTION 3. LEFT ATRIAL ENLARGEMENT 4. MILD MITRAL REGURGITATION 5. MILD TRICUSPID REGURGITATION 6. DILATED INFERIOR VENA CAVA AT 2.6 CENTIM[employer]ERS TECHNOLOGIST: MANOJ NULL
[2023-12-31 15:26] VITALS: BMI 47.0
--- NOTE | 2023-12-31 16:56 | P.CNS ---
Date of Consult: 12/31/23 Chief Complaint: SOB and bilateral lower extremities swelling History of Present Illness: Leeann with PMH of HTN, Atrial fibrillation, obesity and recent knee surgery presented with worsening bilateral lower extremities edema and worsening GREEN, he denies any other cardiac symptoms, no chest pain, no palpitations, no syncope. Allergies No Known Allergies Allergy (Verified 01/05/22 13:31) Home Medications: Olmesartan/Hydrochlorothiazide [Benicar Hct 20-12.5 mg Tablet] 1 each PO DAILY 11/23/16 Amox/Clavulanate [Augmentin 875-125 Tab] 1 each PO BID #12 tab 11/27/21 Amlodipine Besylate 5 mg PO BID 12/30/23 Apixaban [Eliquis *] 5 mg PO BID 12/30/23 Hydrocodone 10/APAP 325 [[place] 10/325*] 1 tab PO Q6HP PRN 12/30/23 Magnesium Oxide [Mag 0X*] 400 mg PO BID 12/30/23 Sotalol HCl [Sotalol] 120 mg PO BID 12/30/23 Sulfamethoxazole/Trimethoprim [Bactrim 400-80 mg Tablet] 800 mg PO BID 12/30/23 Tizanidine [Zanaflex*] 4 mg PO Q8HP PRN 12/30/23 carvediloL [Coreg*] 12.5 mg PO BID 12/30/23 - Past Medical/Surgical History Diabetic: No -: HTN -: A fib -: Knee surgery L - Family History Mother Medical History: Heart disease, Hypertension Father Medical History: Hypertension, Lung disease - Social History Alcohol use: Yes CD- Drugs: No Caffeine use: Yes Place of Residence: Home Review of Systems 10-point ROS is otherwise unremarkable Physical Examination Temp Pulse Resp BP Pulse Ox 97 F 69 17 106/57 L 97 12/31/23 16:00 12/31/23 16:00 12/31/23 16:00 12/31/23 16:00 12/31/23 16:00 General: Alert, Oriented x3 HEENT: Atraumatic Neck: Supple Respiratory: Crackles/rales Cardiovascular: Edema (+2 Bilateral lower extremities), Irregular heart rate/rhythm Gastrointestinal: Normal bowel sounds Laboratory Data (last 24 hrs) 12/31/23 12/31/23 12/30/23 02:41 02:41 18:20 WBC 5.20 Hgb 9.3 L Hct 26.6 L Plt Count 261 Sodium 127 L D 122 L Potassium 3.9 D 5.0 BUN 19 H 20 H Creatinine 1.26 1.32 H Glucose 110 H 96 Magnesium 2.0 1.9 Total Bilirubin 0.9 AST 26 ALT 31 Alkaline Phosphatase 86 12/30/23 18:20 WBC 5.80 Hgb 10.0 L Hct 29.1 L Plt Count 288 Sodium Potassium BUN Creatinine Glucose Magnesium Total Bilirubin AST ALT Alkaline Phosphatase - Problems (1) Acute diastolic heart failure Current Visit: Yes Status: Acute Plan: Patient Echo done that shows normal EF, dilated IVC, no comment about diastolic function but patient symptoms and risk factors including AF and obesity put him under risk for having DD, agree with Diuresis with Lasix 40 mg IV BID. Continue to monitor input and output monitor and correct electrolytes. (2) HTN (hypertension) Current Visit: Yes Status: Acute Plan: patient BP is soft on Coreg 6.25 mg po BID once diuresis is with IV lasix is slowed done, patient will benefit from lisinopril and spirnolactone. (3) Atrial fibrillation Current Visit: No Status: Acute Plan: Continue Sotalol 120 mg po BID Continue Eliquis 5 mg po BID Qualifiers:
--- NOTE | 2024-01-01 00:59 | PN ---
Date of Progress Note: 12/31/2023 Subjective: The patient was seen this morning for followup. No new complaints or problems reported by the patient. Lying in bed, not in distress. Did not have any complaints overnight. Objective: Vital Signs: Reviewed. HEENT: Examination unremarkable. Lungs: Bilateral good equal air entry, not in any respiratory distress and bilateral rhonchi that he had yesterday has improved. The patient not using any accessory muscles of respiration. Heart: Sounds normal. Abdomen: Soft, bowel sounds normal. No guarding, rigidity, tenderness, or distention. Extremities: Bilateral leg edema, slightly better today than yesterday. Laboratory Data: White count 5.2, hemoglobin 9.3, platelets 261. Sodium 127, potassium 3.9, chlorid e 94, bicarb 27, BUN 19, creatinine 1.26, glucose 110, magnesium 2. Impression: 1.Congestive heart failure, diastolic, chronic, with acute exacerbation. 2.Chronic atrial fibrillation. 3.Chronic anticoagulation therapy. 4.Anemia. 5.Hyponatremia. Plan: We will go ahead and continue current IV diuretic therapy. Monitor intake, output, and daily weight. We will repeat blood work tomorrow morning to monitor electrolytes and renal function. Sodi um level has improved and it is expected to continue to get better as we diurese him adequately. We will go ahead and continue to follow with prepress manager. Depending on his condition tomorrow, we will see if the patient can be discharged to go home tomorrow or not. Carvedilol will be kept on hold if systolic blood pressure is less than 130. Continue sotalol and Eliquis. ANGEL/MODL Voice ID: [id number] Report ID: [id number]
[2024-01-01 07:44] LABS: Absolute Basophils 0.1 K/uL (0-0.5); Absolute Eosinophils 0.3 K/uL (0-0.5); Absolute Lymphocytes (CBC) 1.3 K/uL (0.7-4.9); Absolute Monocytes 0.6 K/uL (0.1-1.3); Absolute Neutrophil 3.4 K/uL (1.8-8.0); Basophils % 1.3 % (0-1.3); Eosinophils % 4.5 % (0-4.4); Hematocrit 29.9 % (39.6-49.0); Hemoglobin 10.4 g/dL (13.6-17.9); Lymphocytes % 23.8 % (15.3-44.8); MCH 32.6 pg (27.0-35.0); MCHC 34.8 g/dL (32.0-36.0); MCV 93.5 fL (80-100); MPV 7.3 fL (7.6-11.3); Monocytes % 10.3 % (3.3-12.3); Neutrophils % 60.1 % (41.7-73.7); Nucleated Red Blood Cells % 0.1 % (0-0); Platelets 353 thou/uL (152-406); Red Cell Distribution Width 13.4 % (12.1-15.2)
[2024-01-01 07:47] LABS: Magnesium 1.5 mg/dL (1.6-2.4)
[2024-01-01] MEDS: Magnesium Sulfate 2gm IVPB 2 G/50 ML BAG IV ONE (11:31)
--- NOTE | 2024-01-01 11:51 | P.PN ---
Subjective Date of Service: 01/01/24 Chief Complaint: SOB and bilateral lower extremities swelling Subjective: No new changes Review of Systems 10-point ROS is otherwise unremarkable Physical Examination - Vital Signs Temperature: 97.0 F Blood Pressure: 129/84 Pulse: 78 Respirations: 18 Pulse Ox (%): 97 - Physical Exam General: Alert, Oriented x3 HEENT: Atraumatic Neck: Supple Respiratory: Crackles/rales Cardiovascular: Edema, Irregular heart rate/rhythm Gastrointestinal: Normal bowel sounds - Studies Laboratory Data (last 24 hrs) 01/01/24 01/01/24 07:24 07:24 WBC 5.60 Hgb 10.4 L Hct 29.9 L Plt Count 353 Sodium 132 L Potassium 4.0 BUN 15 Creatinine 1.00 Glucose 101 Magnesium 1.5 L Assessment And Plan - Current Problems (Diagnosis) (1) Acute diastolic heart failure Current Visit: Yes Status: Acute Plan: Patient Echo done that shows normal EF, dilated IVC, no comment about diastolic function but patient symptoms and risk factors including AF and obesity put him under risk for having DD, Continue Diuresis with Lasix 40 mg IV BID. Continue to monitor input and output monitor and correct electrolytes. (2) HTN (hypertension) Current Visit: Yes Status: Acute Plan: patient BP is soft on Coreg 6.25 mg po BID once diuresis is with IV lasix is slowed done, patient will benefit from lisinopril and spirnolactone. (3) Atrial fibrillation Current Visit: No Status: Acute Plan: Continue Sotalol 120 mg po BID Continue Eliquis 5 mg po BID Qualifiers:
[2024-01-01 22:55] VITALS: O2SAT 96
--- NOTE | 2024-01-02 02:05 | PN ---
Date of Progress Note: 01/01/2024 Subjective: The patient was seen this morning for followup. He was lying in bed, not in distress. Reports that yesterday he did ambulate in the hallway and his shortness of breath has improved. Dell es any new complaints overnight. Objective: Vital Signs: Reviewed. HEENT: Unremarkable. Lungs: Clear to auscultation. No wheezing. No rales. Heart: Sounds normal. Abdomen: Soft. Bowel sounds normal. No guarding, rigidity, tenderness, distention. Extremities: Bilateral leg edema present. The patient still has lot of leg swelling including swell ing of both thighs and lower legs, but overall it is better than before. Laboratory Data: Sodium 132, potassium 4, chloride 98, bicarb 29, BUN 15, creatinine 1, glucose 101, magnesium 1.5. White count 5.6, hemoglobin 10.4, platelets 353. Impression: 1.Congestive heart failure, chronic, diastolic, with acute exacerbation. 2.Anemia, chronic. 3.Chronic atrial fibrillation. 4.Chronic anticoagulation therapy. Plan: We will go ahead and continue current IV diuretic therapy. His weight today is 388 pounds. U britt admission, his weight was 408 pounds, so he has lost altogether almost 20 pounds since his admiss ion. We will continue current IV diuretic therapy. Repeat blood work tomorrow morning. Replace mag nesium per protocol and I will see him tomorrow morning for followup. Depending on his condition, we will decide if we can possibly discharge him to go home tomorrow or not. ANGEL/MODL Voice ID: [id number] Report ID: [id number]
[2024-01-02 03:56] LABS: Anion Gap 9.7 mEq/L (5.0-15.0); Magnesium 1.7 mg/dL (1.6-2.4); Potassium 3.7 mEq/L (3.5-5.1)
[2024-01-02] MEDS: MAGNESIUM SULFATE 1 gm IVPB 1 GM/100 ML BAG IV ONE (05:34)
[2024-01-02 09:04] VITALS: BP 129/75; TEMP 97.4
[2024-01-02] MEDS: POTASSIUM CL SA 10 MEQ TAB PO ONE (09:30)
--- NOTE | 2024-01-02 10:20 | P.PN ---
Subjective Date of Service: 01/02/24 Chief Complaint: SOB and bilateral lower extremities swelling Subjective: No new changes Review of Systems 10-point ROS is otherwise unremarkable Physical Examination - Vital Signs Temperature: 97.4 F Blood Pressure: 129/75 Pulse: 71 Respirations: 17 Pulse Ox (%): 97 - Physical Exam General: Alert, Oriented x3 HEENT: Atraumatic Neck: Supple Respiratory: Crackles/rales Cardiovascular: Normal S1 S2, Edema Gastrointestinal: Normal bowel sounds - Studies Laboratory Data (last 24 hrs) 01/02/24 01/01/24 02:32 19:27 Sodium 129 L Potassium 3.7 BUN 16 Creatinine 0.94 Glucose 93 Magnesium 1.7 1.8 Assessment And Plan - Current Problems (Diagnosis) (1) Acute diastolic heart failure Current Visit: Yes Status: Acute Plan: Patient Echo done that shows normal EF, dilated IVC, no comment about diastolic function but patient symptoms and risk factors including AF and obesity put him under risk for having DD, Continue Lasix 40 mg po daily. Continue to monitor input and output monitor and correct electrolytes. (2) HTN (hypertension) Current Visit: Yes Status: Acute Plan: patient BP is soft on Coreg 6.25 mg po BID patient will benefit from lisinopril and spirnolactone, will initiate as outpatient. (3) Atrial fibrillation Current Visit: No Status: Acute Plan: Continue Sotalol 120 mg po BID Continue Eliquis 5 mg po BID Qualifiers:
--- NOTE | 2024-01-03 03:15 | DS ---
Date of Discharge: 01/02/2024 History: The patient was seen this morning for followup. He was lying in bed, not in distress. Den ies any new complaints. Physical Examination: Vital Signs: Reviewed. HEENT: Unremarkable. Lungs: Clear to auscultation. No wheezing. No rales. Heart: Sounds normal. Abdomen: Soft. Bowel sounds normal. No guarding, rigidity, tenderness, distention. Extremities: Bilateral leg edema which is significantly better than before. I would say he has now grade 1 pedal edema in both lower extremities. Discharge Medications And Instructions: Continue all prior home medication except following changes: 1.Stop olmesartan and stop amlodipine. 2.Change carvedilol 12.5 mg, take half tablet by mouth 2 times a day. 3.Start furosemide 40 mg, take 1 tablet by mouth 2 times a day. 4.Start potassium chloride 10 mEq, take 1 tablet by mouth 2 times a day. 5.Start Ferrocite, take 1 tablet by mouth daily. 6.Follow up at my office next week. 7.Follow up with Dr. Alvares/Dr. Calix in 2 to 3 weeks. 8.If the patient's insurance does not pay for Ferrocite prescription, that the patient should take o [id number] iron 65 mg 1 tablet by mouth daily and this was explained to the patient as well. Laboratory Data: Upon admission, white count 5.8, hemoglobin 10, platelets 288. Yesterday, white co unt 5.6, hemoglobin 10.4, platelets 353. Upon admission, chemistry, sodium 122, potassium 5, chlorid e 94, bicarb 26, BUN 20, creatinine 1.32, glucose 96. Liver function tests unremarkable. Troponin 3 .1. ProBNP 1195. TSH 2.070. Yesterday, sodium came up to 132 with low magnesium at 1.5. Today, so dium 129, potassium 3.7, chloride 93, bicarb 30, BUN 16, creatinine 0.94, magnesium 1.7, glucose 93. Hospital Course: This is a 58-year-old pleasant male patient, admitted to the hospital with leg swel ling and shortness of breath. Please see dictated H and P for more information. After the patient w as evaluated at office, decision was made to admit him to the hospital for congestive heart failure [place]. After he was admitted to the hospital, Cardiology consultation was obtained and chest x-ray did not show any acute changes. Echocardiogram done during this hospitalization shows normal ejectio n fraction. The patient was started on IV diuretic therapy which was Lasix 40 mg twice a day. His b lood pressure is running on the lower normal range and systolic blood pressure 110 to 120 range, so h e really did not require any olmesartan or his amlodipine during this hospitalization and also upon d ischarge, we will keep it on hold as outlined above. The patient has improved significantly. He is ambulating very well without any shortness of breath outside his room in the hallway and overall repo rts today that he is feeling a lot better. His weight upon admission was 208 pounds and today his we ight is 383 pounds, so he has diuresed very well. The patient will be discharged to go home in sta e condition today with above-mentioned medications and instructions. Final Diagnoses: 1.Congestive heart failure, chronic, diastolic, with acute exacerbation. 2.Hyponatremia. 3.Hypertension. 4.Hyperlipidemia. 5.Chronic atrial fibrillation. 6.Chronic anticoagulation therapy. 7.Hypomagnesemia. Total time spent 40 minutes. ANGEL/PIO Voice ID: [id number] Report ID: [id number]
== END 2024-01-02 10:37 | disposition home or self-care (01) | DRG 291 ==
LOC: 2ND 15:58
PROVIDERS: ADMIT Internal Medicine; ATTEND Internal Medicine
DX: I11.0 Hypertensive heart disease with heart failure (principal); I50.33 Acute on chronic diastolic (congestive) heart failure; E87.1 Hypo-osmolality and hyponatremia; I48.20 Chronic atrial fibrillation, unspecified; Z68.42 Body mass index [BMI] 45.0-49.9, adult; E66.9 Obesity, unspecified; E83.42 Hypomagnesemia; D64.9 Anemia, unspecified; E78.5 Hyperlipidemia, unspecified; F17.220 Nicotine dependence, chewing tobacco, uncomplicated; Z79.01 Long term (current) use of anticoagulants; Z96.652 Presence of left artificial knee joint; Z79.899 Other long term (current) drug therapy
CPT/HCPCS: 36415; 71046; 80048; 80053; 83735; 83880; 84443; 84484; 85025; 93005; 93306; J1940; J3475

== ENCOUNTER 2024-02-14 08:18 | Day surgery (SDC) | payer BC ==
[2024-02-12 15:33] LABS: Absolute Basophils 0.1 K/uL (0-0.5); Absolute Eosinophils 0.2 K/uL (0-0.5); Absolute Lymphocytes (CBC) 1.7 K/uL (0.7-4.9); Absolute Monocytes 0.7 K/uL (0.1-1.3); Absolute Neutrophil 5.2 K/uL (1.8-8.0); Eosinophils % 2.6 % (0-4.4); Hematocrit 39.1 % (39.6-49.0); Lymphocytes % 22.1 % (15.3-44.8); MCH 30.3 pg (27.0-35.0); MCHC 33.2 g/dL (32.0-36.0); MCV 91.5 fL (80-100); MPV 8.6 fL (7.6-11.3); Monocytes % 8.6 % (3.3-12.3); Neutrophils % 65.7 % (41.7-73.7); Platelets 248 thou/uL (152-406); RBC Red Blood Cell Count 4.27 M/uL (4.33-5.43)
[2024-02-12 15:36] LABS: Anion Gap 8.8 mEq/L (5.0-15.0); Potassium 3.8 mEq/L (3.5-5.1)
[2024-02-12 15:38] LABS: PT Prothrombin Time 14.1 SECONDS (9.5-12.5); PTT, Activated Partial Thromb 32.5 SECONDS (24.3-36.9); Protime INR 1.29
[2024-02-14] MEDS: Ringers Lactate 1,000 ML IV ONE (08:41)
[2024-02-14] MEDS ORDERED: propofoL 200 MG/20 ML VIAL IV ONE ×3 (11:32→11:50)
[2024-02-14] MEDS ORDERED: LIDOCAINE 1% MPF 5 ML VIAL ONE (11:33)
[2024-02-14 14:06] VITALS: BP 114/75; TEMP 97; O2SAT 100
== END 2024-02-14 13:06 | disposition home or self-care (01) ==
LOC: OR 08:18
PROVIDERS: ATTEND Surgery
PROC: 0DBQ8ZX Excision of Anus, Via Natural or Artificial Opening Endoscopic, Diagnostic (ICD-10-PCS; principal; 2024-02-14 10:15)
DX: Z12.11 Encounter for screening for malignant neoplasm of colon (principal); K63.5 Polyp of colon; K64.8 Other hemorrhoids
CPT/HCPCS: 85025; 80048; 36415; 85610; 88304; 85730; 45385; J2704 ×2; J2001; J7120; 88305